=== PATIENT | male | born 1955 | race Caucasian/White ===

== ENCOUNTER 2017-12-20 07:40 | Emergency (ER) | payer OTHER ==
--- NOTE | 2017-12-20 09:47 | UC ---
Back Pain HPI - HPI Summary HPI Summary: PT WITH H/O CHRONIC LOW BACK PAIN PRESENTS WITH 4 DAYS OF WORSENING PAIN IN BILATERAL FLANK AREAS. IS CONCERNED ABOUT HIS KIDNEYS HE WAS HOSPITALIZED IN [place] ABOUT 3-4 MONTHS AGO IN KIDNEY FAILURE. DENIES ANY URINARY SX. NO FEVER OR NAUSEA. - History of Current Complaint Chief Complaint: UCBackPain Stated Complaint: LOWER BACK PAIN Time Seen by Provider: 12/20/17 09:19 Hx Obtained From: Patient Onset/Duration: Gradual Onset, Lasting Days, Still Present Timing: Constant Severity Initially: Moderate Severity Currently: Moderate Pain Intensity: 7 Pain Scale Used: 0-10 Numeric Back Pain: Is Discrete @ - LOW BACK BILATERALLY Aggravating Factor(s): Nothing Alleviating Factor(s): Nothing Associated Signs And Symptoms: Positive: Abdominal Pain. Negative: Fever, Flank Pain, Bladder Incontinence, Bowel Incontinence - Allergies/Home Medications Allergies/Adverse Reactions: Allergies Allergy/AdvReac Type Severity Reaction Status Date / Time No Known Allergies Allergy Verified 12/20/17 07:56 Home Medications: Home Medications Cyclobenzaprine TAB* [Flexeril 10 MG TAB*] 1 tab PO QPM PRN 12/20/17 [History Confirmed 12/20/17] Omeprazole CAP* [Prilosec CAP* 20 MG] 1 cap PO DAILY PRN 12/20/17 [History Confirmed 12/20/17] Oxycodone TAB(NF) [Oxycodone HCl 10 MG] 1 tab PO TID 12/20/17 [History Confirmed 12/20/17] tiZANidine TAB* [Zanaflex TAB*] 2 mg PO BID 12/20/17 [History Confirmed 12/20/17 ] PMH/Surg Hx/FS Hx/Imm Hx - Additional Past Medical History Additional PMH: CHRONIC LOW BACK PAIN Cardiovascular History: Hypertension - Surgical History Surgical History: Yes Surgery Procedure, Year, and Place: appy 35 years ago. laser surg for retinal bleeding 15 years ago - Family History Known Family History: Negative: Hypertension - Social History Alcohol Use: Occasionally Substance Use Type: None Smoking Status (MU): Never Smoked Tobacco - Immunization History Most Recent Tetanus Shot: unknown Review of Systems Constitutional: Negative Respiratory: Negative Cardiovascular: Negative Gastrointestinal: Negative Genitourinary: Negative Musculoskeletal: Myalgia All Other Systems Reviewed And Are Negative: Yes Physical Exam Triage Information Reviewed: Yes Appearance: Well-Appearing, Well-Nourished, Pain Distress - MOD Vital Signs: Initial Vital Signs Temp 99.3 F 12/20/17 07:49 Pulse 82 12/20/17 07:49 Resp 20 12/20/17 07:49 BP 140/83 12/20/17 07:49 Pulse Ox 98 12/20/17 07:49 Vital Signs Reviewed: Yes Eyes: Positive: Conjunctiva Clear ENT: Positive: Hearing grossly normal Neck: Positive: Supple Respiratory Exam: Normal Cardiovascular Exam: Normal Abdomen Description: Positive: Nontender, Soft. Negative: CVA Tenderness (R), CVA Tenderness (L) Musculoskeletal: Positive: No Edema, ROM Limited @ - BACK, Other: - NOT TENDER OVER SPINE OF PARASPINAL MUSCLES Neurological: Positive: Alert Psychological: Positive: Age Appropriate Behavior Skin: Negative: rashes Diagnostics - Laboratory Diagnostic Studies Completed/Ordered: URINE DIP NEGATIVE Back Pain Course/Dx - Differential Dx/Diagnosis Provider Diagnoses: BILATERAL FLANK PAIN Discharge - Discharge Plan Condition: Stable Disposition: HOME Patient Education Materials: Flank Pain (ED), Chronic Back Pain (ED) Referrals: Yoni Johnson MD [Primary Care Provider] - If Needed Additional Instructions: URINE TEST TODAY WAS UNREMARKABLE. YOUR PAIN MAY BE DUE TO AN EXACERBATION OF YOUR CHRONIC BACK PAIN. WILL CHECK BLOOD COUNT AND METABOLIC PANEL TODAY TO EVAL FOR ANY INDICATION OF INFECTION OR KIDNEY DYSFUNCTION. GO TO THE ER WITHOUT FAIL IF YOU DEVELOP WORSENING PAIN, FEVER, BLOODY URINE, INABILITY TO VOID OR ANY OTHER CONCERNING SYMPTOMS.
[2017-12-20 09:58] VITALS: BP 157/77
[2017-12-20 12:13] LABS: EGFR Non-African American 40.8 (>60)
[2017-12-20 12:39] LABS: ABS Basophils 0 10^3/ul (0-0.2); ABS Eosinophils 0.3 10^3/ul (0-0.6); ABS Lymphocytes 1.1 10^3/ul (1.0-4.8); ABS Monocytes 0.6 10^3/ul (0-0.8); ABS Neutrophils 3.5 10^3/ul (1.5-7.7); ABS Nucleated RBC 0 10^3/ul; Eosinophil % 6.1 % (0-6); Hematocrit 37 % (42-52); Hemoglobin 12.9 g/dl (14.0-18.0); Lymphocyte % 19.2 % (25-47); Mean Corpuscular HGB Conc 35 g/dl (31-36); Mean Corpuscular Hemoglobin 37 pg (27-31); Mean Corpuscular Volume 105 fL (80-94); Mean Platelet Volume 8 um3 (7.4-10.4); Nucleated Red Blood Cells % 0.1; Platelet Count 97 10^3/ul (150-450); Red Blood Count 3.51 10^6/ul (4.0-5.4); Red Cell Distribution Width 14 % (10.5-15); White Blood Count 5.6 10^3/ul (3.5-10.8)
== END 2017-12-20 10:06 | disposition home or self-care (01) ==
LOC: UCEAST 07:40
DX: M54.5 Low back pain (principal); R10.9 Unspecified abdominal pain; I10 Essential (primary) hypertension
CPT/HCPCS: 36415; 80053; 81003; 83036; 83735; 85025; 99212; G0463

== ENCOUNTER 2018-01-16 10:51 | Emergency (ER) | payer OTHER ==
[2018-01-16] MEDS ORDERED: Lisinopril TAB* 5 MG PO ONE (11:36)
[2018-01-16] MEDS ORDERED: oxyCODONE TAB* 5 MG TAB PO ONE (11:36)
[2018-01-16 12:20] VITALS: BP 162/91
--- NOTE | 2018-01-16 14:48 | ED ---
Anmol Duffy Jennifer, scribed for Alo Chang MD on 01/16/18 at 1134 . Hypertension - HPI Summary HPI Summary: The patient is a 62 year old male who was sent to the ED by his pain doctor for hypertension today. The patient reports he forgot to take his blood pressure medication this morning. He adds that he didnt sleep well last night and has chronic lower back pain. - History of Current Complaint Chief Complaint: EDHypertension Stated Complaint: HYPERTENSION/BACK PAIN Time Seen by Provider: 01/16/18 11:22 Hx Obtained From: Patient Onset/Duration: Started Hours Ago Timing: Lasting Hours Aggravating Factor(s): Nothing Alleviating Factor(s): Other - Blood pressure medication Associated Signs & Symptoms: Pain - Chronic lower back pain, Other: - Didn't sleep well last night - Allergies/Home Medications Allergies/Adverse Reactions: Allergies Allergy/AdvReac Type Severity Reaction Status Date / Time No Known Allergies Allergy Verified 12/20/17 07:56 PMH/Surg Hx/FS Hx/Imm Hx Cardiovascular History: Reports: Hx Hypertension Sensory History: Denies: Hx Legally Blind EENT History: Denies: Hx Deafness - Surgical History Surgery Procedure, Year, and Place: appy 35 years ago. laser surg for retinal bleeding 15 years ago Infectious Disease History: No Infectious Disease History: Denies: Traveled Outside the [place] in Last 30 Days - Family History Known Family History: Negative: Hypertension - Social History Alcohol Use: Daily Alcohol Amount: 2-3/day Substance Use Type: Reports: None, Prescribed Smoking Status (MU): Former Smoker Review of Systems Negative: Chills Positive: Other - Hypertension All Other Systems Reviewed And Are Negative: Yes Physical Exam - Summary Physical Exam Summary: General: well-appearing, no pain distress Skin: warm, color reflects adequate perfusion, dry Head: normal Eyes: EOMI, JOHNATHAN ENT: normal Neck: supple, nontender Respiratory: CTA, breath sounds present Cardiovascular: RRR Abdomen: soft, nontender Bowel: present Musculoskeletal: tender to palpation of lower back on the right. strength/ROM intact Neurological: normal, sensory/motor intact, A&O x3 Psychological: affect/mood appropriate Triage Information Reviewed: Yes Vital Signs On Initial Exam: Initial Vitals Temp Pulse Resp BP Pulse Ox 100.9 F 87 18 162/87 98 01/16/18 11:07 01/16/18 11:07 01/16/18 11:07 01/16/18 11:07 01/16/18 11:07 Vital Signs Reviewed: Yes Diagnostics - Vital Signs Vital Signs Temp Pulse Resp BP Pulse Ox 01/16/18 11:07 100.9 F 87 18 162/87 98 - Laboratory Lab Statement: Any lab studies that have been ordered have been reviewed, and results considered in the medical decision making process. Hypertension Course/Dx - Course Course Of Treatment: Medications reviewed. BP noted and advised to follow up with PCP. F/U PMD; RETURN IF WORSE. - Diagnoses Provider Diagnoses: HTN (hypertension) Discharge - Sign-Out/Discharge Documenting (check all that apply): Discharge - Discharge Plan Condition: Stable Disposition: HOME Patient Education Materials: Hypertension (ED), Chronic Back Pain (ED) Referrals: Yoni Johnson MD [Primary Care Provider] - Additional Instructions: FOLLOW UP WITH YOUR DOCTOR. RETURN TO THE EMERGENCY DEPARTMENT FOR ANY WORSENING OF YOUR CONDITION OR QUESTIONS OR CONCERNS. YOUR BLOOD PRESSURE WAS ELEVATED TODAY; FOLLOW UP WITH YOUR PRIMARY CARE DOCTOR WITHIN ONE WEEK. - Billing Disposition and Condition Condition: STABLE Disposition: HOME The documentation as recorded by the Anmol painting Jennifer accurately reflects the service I personally performed and the decisions made by me, Alo Chang MD.
[2018-01-17] MEDS ORDERED: Meloxicam(NF) 7.5 MG TAB PO ONE (11:35)
== END 2018-01-16 12:21 | disposition home or self-care (01) ==
LOC: ED 10:51
DX: I10 Essential (primary) hypertension (principal); M54.5 Low back pain; Z87.891 Personal history of nicotine dependence
CPT/HCPCS: 99282; A9270-GY

== ENCOUNTER 2018-08-09 01:23 | Observation (INO) | payer OTHER ==
--- NOTE | 2018-08-09 01:59 | ED ---
Substance Abuse/Use - HPI Summary HPI Summary: Pt is a 62 y/o male who presents to the ED c/o alcohol withdrawal. He has been an alcohol for 40 years, drinking 1 pint of vodka daily. He stopped drinking 4 days ago because he wants to quit drinking. Pt had several beers a few hours ago to try to calm down his symptoms. He c/o nausea, tremors, and sweating. - History Of Current Complaint Chief Complaint: EDSubstanceAbuse Stated Complaint: NAUSEA/SWEATING/WITHDRAW Time Seen by Provider: 08/09/18 01:51 Hx Obtained From: Patient Onset/Duration of Drug/ETOH Abuse: Years - 40 years Ingestion History: Type/Name Of Drug - Alcohol Character: Other - Withdrawal Aggravating Factor(s): Other - Stopped drinking alcohol 4 days ago Associated Signs And Symptoms: Diaphoretic, Tremulous, Nausea - Allergies/Home Medications Allergies/Adverse Reactions: Allergies Allergy/AdvReac Type Severity Reaction Status Date / Time No Known Allergies Allergy Verified 12/20/17 07:56 Home Medications: Home Medications Ondansetron ODT TAB* [Zofran 4 MG Odt TAB*] 4 mg PO Q6H PRN 08/09/18 [History Confirmed 08/09/18] PMH/Surg Hx/FS Hx/Imm Hx Cardiovascular History: Reports: Hx Hypertension Sensory History: Denies: Hx Legally Blind, Hx Deafness Opthamlomology History: Denies: Hx Legally Blind Psychiatric History: Reports: Hx Substance Abuse - Alcohol - Surgical History Surgery Procedure, Year, and Place: appy 35 years ago. laser surg for retinal bleeding 15 years ago Infectious Disease History: No Infectious Disease History: Denies: Traveled Outside the [place] in Last 30 Days - Family History Known Family History: Negative: Hypertension - Social History Alcohol Use: Daily Alcohol Amount: 2-3/day Hx Substance Use: Yes Substance Use Type: Reports: Prescribed Hx Tobacco Use: Yes Smoking Status (MU): Former Smoker Review of Systems Positive: Skin Diaphoresis Positive: Nausea Neurological: Other - Tremors All Other Systems Reviewed And Are Negative: Yes Physical Exam - Summary Physical Exam Summary: VITAL SIGNS: Reviewed. GENERAL: Patient is a well-developed and nourished MALE who is lying comfortable in the stretcher. Patient is not in any acute respiratory distress. HEAD AND FACE: No signs of trauma. No ecchymosis, hematomas or skull depressions. No sinus tenderness. EYES: PERRLA, EOMI x 2, No injected conjunctiva, no nystagmus. EARS: Hearing grossly intact. Ear canals and tympanic membranes are within normal limits. MOUTH: Oropharynx within normal limits. NECK: Supple, trachea is midline, no adenopathy, no JVD, no carotid bruit, no c- spine tenderness, neck with full ROM. CHEST: Symmetric, no tenderness at palpation LUNGS: Clear to auscultation bilaterally. No wheezing or crackles. CVS: Tachycardic but regular rhythm, S1 and S2 present, no murmurs or gallops appreciated. ABDOMEN: Soft, non-tender. No signs of distention. No rebound no guarding, and no masses palpated. Bowel sounds are normal. EXTREMITIES: FROM in all major joints, no edema, no cyanosis or clubbing. NEURO: Alert and oriented x 3. No acute neurological deficits. Speech is normal and follows commands. Tremors. SKIN: Dry and warm. Flushed. Triage Information Reviewed: Yes Vital Signs On Initial Exam: Initial Vitals Temp Pulse Resp BP Pulse Ox 97.5 F 140 20 176/118 95 08/09/18 01:25 08/09/18 01:25 08/09/18 01:25 08/09/18 01:25 08/09/18 01:25 Vital Signs Reviewed: Yes Diagnostics - Vital Signs Vital Signs Temp Pulse Resp BP Pulse Ox 08/09/18 01:25 97.5 F 140 20 176/118 95 - Laboratory Result Diagrams: 08/09/18 02:12 08/09/18 02:12 Lab Statement: Any lab studies that have been ordered have been reviewed, and results considered in the medical decision making process. - EKG 02:27 Cardiac Rate: Tachycardia - 116 bpm EKG Rhythm: Sinus Tachycardia EKG Interpretation: Non-specific T-ST changes Re-Evaluation - Re-Evaluation First Eval Re-Evaluation Time: 02:53 Change: Unchanged Comment: [facility] house servant Becky for admission. Course/Dx - Course Course Of Treatment: Pt is a 62 y/o male who presents to the ED c/o alcohol withdrawal. He has been an alcohol for 40 years, drinking 1 pint of vodka daily. He stopped drinking 4 days ago because he wants to quit drinking. Pt had several beers a few hours ago to try to calm down his symptoms. He c/o nausea, tremors, and sweating. A physical exam revealed flushed skin, tremors, and tachycardic. An EKG revealed tachycardia at a rate of 116 bpm and non-specific T -ST changes. Final dx is alcohol withdrawal. Pt is admitted to Dr. Caldwell. - Diagnoses Provider Diagnoses: Alcohol withdrawal - Physician Notifications Discussed Care Of Patient With: Meenakshi Caldwell Time Discussed With Above Provider: 03:15 Instructed by Provider To: Admit As Inpatient Discharge - Sign-Out/Discharge Documenting (check all that apply): Patient Departure - Admit - Discharge Plan Condition: Stable Disposition: ADMITTED TO [facility] Referrals: Daniel Yanes DO [Primary Care Provider] - - Attestation Statements Document Initiated by Scribe: Yes Documenting Scribe: Genesis Tyson Provider For Whom Scribe is Documenting (Include Credential): Bridget Stallworth MD Scribe Attestation: Genesis Duffy scribed for Bridget Stallworth MD on 08/09/18 at 0320.
[2018-08-09] MEDS ORDERED: NS 0.9% 1000 ML* 1,000 ML IV ONE (02:03)
[2018-08-09] MEDS ORDERED: Thiamine IV 100 MG, Folic Acid IV* 1 MG, Multiple Vitamin IV ADULT* 10 ML in D5NS 0.9% ... IV ONE (02:03)
[2018-08-09] MEDS ORDERED: Diazepam SYRINGE* 5 MG/ML 2 ML SYRINGE (10 MG total) IV ONE (02:05)
[2018-08-09 02:30] LABS: Hematocrit 44 % (42-52); Hemoglobin 15.3 g/dl (14.0-18.0); Mean Corpuscular HGB Conc 35 g/dl (31-36); Mean Corpuscular Hemoglobin 33 pg (27-31); Mean Corpuscular Volume 96 fL (80-94); Mean Platelet Volume 7.7 um3 (7.4-10.4); Platelet Count 91 10^3/ul (150-450); Red Blood Count 4.62 10^6/ul (4.00-5.40); Red Cell Distribution Width 16 % (10.5-15); White Blood Count 7.8 10^3/ul (3.5-10.8)
[2018-08-09 02:33] LABS: INR 1.17 (0.77-1.02)
[2018-08-09 02:43] LABS: EGFR Non-African American 37.5 (>60)
[2018-08-09 02:49] LABS: ABS Basophils 0 10^3/ul (0-0.2); ABS Eosinophils 0 10^3/ul (0-0.6); ABS Lymphocytes 0.7 10^3/ul (1.0-4.8); ABS Monocytes 0.6 10^3/ul (0-0.8); ABS Neutrophils 6.4 10^3/ul (1.5-7.7); ABS Nucleated RBC 0.1 10^3/ul; Eosinophil % 0.1 % (0-6); Lymphocyte % 8.5 % (25-47); Nucleated Red Blood Cells % 0.8
[2018-08-09] MEDS ORDERED: Diazepam INJ (NF) 5 MG/ML 10 ML VIAL (50 MG TOTAL) IV ONE (03:00)
--- NOTE | 2018-08-09 03:41 | ADMNOTE ---
Subjective Date of Service: 08/09/18 Interval History: this is a h/p for admission hpi this is a 62 yr old with chronic etoh dep who just stopped four days ago try to quit presented to er with etoh withdraw symptoms. pt has been drinking daily about 1 to 1.5 pint of vodka. pt does not give out clear history reg his etoh hx says he was in [facility] 05/14 but only stayed to finished detox process then AMA. he got valium 10 mg ivp from er but still asks valium constantly from this writer producer with intentional tremors ( tremors + when seen but tremors are gone when this writer producer was trying to get details of his other phx which raised the question. ) recently visited [facility] 6 weeks ago quit about one month then restarted to drink and increase from 1 to 1.5 liter of vodka. ( he was was d/cd with librium took his librium and d/cd from er from [facility] ) denied any pancreatitis or withdraw sz associated with his etoh consumption Family History: Findings - adopted Social History: Findings - quit cig 14 yrs ago etoh as per hpi no ivda applying for disability Past Medical History: Findings - phx chronic etoh chronic lbp used to be on oxycontin 30 mg daily for two yrs non compliance chronic anemia chronic thrombocytopenia htn but not on that no ivda pxhs s/p b/l inquinal hernia repair s/p appy Review of Systems - Measurements Intake and Output: 10/08 ros reviewed with him c/o hand shakiness from etoh but just got valium 10 mg iv from er - Review of Systems General Comments: 10/08 review with him says he has etoh withdraw symptoms with shaky exts tachy cardiac Objective Active Medications: Thiamine HCl 100 mg/ Folic Acid 1 mg/ Multivitamins 10 ml / Dextrose/Sodium Chloride 1,011.2 mls @ 500 mls/hr IV ED ONCE ONE Stop: 08/09/18 04:04 Vital Signs - 8 hr 08/09/18 08/09/18 08/09/18 01:25 02:01 02:02 Temperature 97.5 F Pulse Rate 140 118 116 Respiratory 20 21 Rate Blood Pressure 176/118 145/98 (mmHg) O2 Sat by Pulse 95 93 93 Oximetry 08/09/18 08/09/18 08/09/18 02:32 03:00 03:01 Temperature Pulse Rate 115 114 110 Respiratory 19 14 15 Rate Blood Pressure 164/110 140/94 (mmHg) O2 Sat by Pulse 90 90 93 Oximetry 08/09/18 03:06 Temperature Pulse Rate Respiratory 20 Rate Blood Pressure (mmHg) O2 Sat by Pulse Oximetry Eyes: No Scleral Icterus, PERRLA Ears/Nose/Mouth/Throat: NL Teeth, Lips, Gums, Clear Oropharnyx, Mucous Membranes Moist Neck: NL Appearance and Movements; NL JVP, Trachea Midline, No Thyroid Enlargement, Masses Respiratory: Symmetrical Chest Expansion and Respiratory Effort, Clear to Auscultation Cardiovascular: NL Sounds; No Murmurs; No JVD, RRR, No Edema Abdominal: NL Sounds; No Tenderness; No Distention Skin: No Rash or Ulcers Neurological: Alert and Oriented x 3, NL Sensation, NL Muscle Strength and Tone - + intentional tremors mixed with true tremors Result Diagrams: 08/09/18 02:12 08/09/18 02:12 EKG Data: sinus tach no acute st t change Assess/Plan/Problems-Billing Assessment: 62 yr old wm with hx of etoh dep presented to er with etoh withdraw - Patient Problems (1) Alcoholism Status: Acute Code(s): F10.20 - ALCOHOL DEPENDENCE, UNCOMPLICATED SNOMED Code(s): 9081335 Comment: - valium as per [facility] protocol -thiamine (2) Chronic lower back pain Status: Acute Code(s): M54.5 - LOW BACK PAIN; G89.29 - OTHER CHRONIC PAIN SNOMED Code(s): 996118283 Comment: stable no opoids able to raise le aginst gravity (3) CKD (chronic kidney disease) stage 3, GFR 30-59 ml/min Status: Acute Code(s): N18.3 - CHRONIC KIDNEY DISEASE, STAGE 3 (MODERATE) SNOMED Code(s): 061306316 Comment: BMP Saturday as outpt. (4) HTN (hypertension) Status: Acute Code(s): I10 - ESSENTIAL (PRIMARY) HYPERTENSION SNOMED Code(s) : 85830285 Comment: Continue lisinopril. - prn hydralazine iv 5 q 6 (5) Total bilirubin, elevated Status: Acute Code(s): R17 - UNSPECIFIED JAUNDICE SNOMED Code(s): 909320086036799 Comment: - moniter cmp - abd sono - npo except meds for now
[2018-08-09] MEDS ORDERED: Omeprazole CAP* 20 MG PO PRN (03:58)
[2018-08-09] MEDS ORDERED: Ondansetron ODT TAB* 4 MG PO PRN (03:58)
[2018-08-09] MEDS ORDERED: Diazepam TAB(*) 10 MG PO PRN (04:01)
[2018-08-09] MEDS ORDERED: Diazepam INJ (NF) 5 MG/ML 10 ML VIAL (50 MG TOTAL) IV PRN (04:06)
[2018-08-09 05:36] LABS: Urine Appearance Cloudy; Urine Blood Negative (Negative); Urine Color Amber; Urine Ketones Trace (Negative); Urine Protein Negative (Negative); Urine Specific Gravity 1.023 (1.010-1.030); Urine Urobilinogen Negative (Negative)
[2018-08-09] MEDS ORDERED: chlordiazePOXIDE CAP* 25 MG PO PRN (07:47)
[2018-08-09] MEDS: chlordiazePOXIDE CAP* 25 MG PO SCH ×3 (07:58→13:40)
--- NOTE | 2018-08-09 08:36 | PN ---
<JaviTerezaMeenakshi - Last Filed: 08/09/18 10:38> Objective Active Medications: Chlordiazepoxide (Librium Cap*) 50 mg PO TID [facility] Last Admin: 08/09/18 08:33 Dose: Not Given Chlordiazepoxide (Librium Cap*) 50 mg PO Q2H PRN PRN Reason: ANXIETY Diazepam (Valium Tab(*)) 10 mg PO Q6HR PRN PRN Reason: AGITATION Lisinopril (Prinivil Tab*) 10 mg PO DAILY [facility] Last Admin: 08/09/18 07:58 Dose: 10 mg Magnesium Oxide (Magox 400 Tab*) 400 mg PO DAILY [facility] Meloxicam (Mobic(Nf)) 15 mg PO DAILY [facility] Last Admin: 08/09/18 07:56 Dose: Not Given Omeprazole (Prilosec Cap*) 20 mg PO DAILY PRN PRN Reason: HEARTBURN Last Admin: 08/09/18 07:58 Dose: 20 mg Ondansetron HCl (Zofran Odt Tab*) 4 mg PO Q6H PRN PRN Reason: NAUSEA Last Admin: 08/09/18 05:56 Dose: 4 mg Thiamine HCl (Vitamin B-1 Tab*) 100 mg PO DAILY [facility] Tizanidine HCl (Zanaflex Tab*) 2 mg PO BID [facility] Last Admin: 08/09/18 07:58 Dose: 2 mg Vital Signs - 8 hr 08/09/18 08/09/18 08/09/18 03:00 03:01 03:06 Temperature Pulse Rate 114 110 Respiratory 14 15 20 Rate Blood Pressure 140/94 (mmHg) O2 Sat by Pulse 90 93 Oximetry 08/09/18 08/09/18 08/09/18 03:32 04:00 04:02 Temperature Pulse Rate 95 92 88 Respiratory 14 20 17 Rate Blood Pressure 151/92 172/88 (mmHg) O2 Sat by Pulse 96 98 96 Oximetry 08/09/18 08/09/18 08/09/18 04:32 04:38 05:00 Temperature 99.9 F Pulse Rate 96 103 93 Respiratory 16 24 15 Rate Blood Pressure 164/96 168/91 (mmHg) O2 Sat by Pulse 96 97 95 Oximetry 08/09/18 08/09/18 08/09/18 05:02 05:05 05:21 Temperature 98.5 F 99.9 F Pulse Rate 101 97 103 Respiratory 13 18 24 Rate Blood Pressure 147/93 164/89 168/91 (mmHg) O2 Sat by Pulse 96 97 97 Oximetry 08/09/18 07:58 Temperature Pulse Rate Respiratory 20 Rate Blood Pressure (mmHg) O2 Sat by Pulse Oximetry Result Diagrams: 08/09/18 02:12 08/09/18 02:12 Assess/Plan/Problems-Billing Assessment: - Patient Problems (1) Alcoholism Current Visit: Yes Status: Acute Code(s): F10.20 - ALCOHOL DEPENDENCE, UNCOMPLICATED SNOMED Code(s): 2124067 Comment: - valium as per [facility] protocol -thiamine (2) Chronic lower back pain Current Visit: Yes Status: Acute Code(s): M54.5 - LOW BACK PAIN; G89.29 - OTHER CHRONIC PAIN SNOMED Code(s): 812313295 Comment: stable no opoids able to raise le aginst gravity (3) CKD (chronic kidney disease) stage 3, GFR 30-59 ml/min Current Visit: Yes Status: Acute Code(s): N18.3 - CHRONIC KIDNEY DISEASE, STAGE 3 (MODERATE) SNOMED Code(s): 650054168 Comment: moniter with ivf (4) HTN (hypertension) Current Visit: Yes Status: Acute Code(s): I10 - ESSENTIAL (PRIMARY) HYPERTENSION SNOMED Code(s): 62179408 Comment: Continue lisinopril. - prn hydralazine iv 5 q 6 (5) Total bilirubin, elevated Current Visit: Yes Status: Acute Code(s): R17 - UNSPECIFIED JAUNDICE SNOMED Code(s): 188320859321338 Comment: - moniter cmp - abd sono - npo except meds for now <[place] - Last Filed: 08/09/18 14:34> Subjective Date of Service: 08/09/18 Interval History: Slept poorly. He states he "panicked" the night before and drank 2 beers, the only alcohol he had in the past 3 days. Appetite OK. Objective Active Medications: Chlordiazepoxide (Librium Cap*) 50 mg PO TID [facility] Last Admin: 08/09/18 07:58 Dose: 50 mg Chlordiazepoxide (Librium Cap*) 50 mg PO Q2H PRN PRN Reason: ANXIETY Diazepam (Valium Tab(*)) 10 mg PO Q6HR PRN PRN Reason: AGITATION Lisinopril (Prinivil Tab*) 10 mg PO DAILY [facility] Last Admin: 08/09/18 07:58 Dose: 10 mg Magnesium Oxide (Magox 400 Tab*) 400 mg PO DAILY [facility] Meloxicam (Mobic(Nf)) 15 mg PO DAILY [facility] Last Admin: 08/09/18 07:56 Dose: Not Given Omeprazole (Prilosec Cap*) 20 mg PO DAILY PRN PRN Reason: HEARTBURN Last Admin: 08/09/18 07:58 Dose: 20 mg Ondansetron HCl (Zofran Odt Tab*) 4 mg PO Q6H PRN PRN Reason: NAUSEA Last Admin: 08/09/18 05:56 Dose: 4 mg Thiamine HCl (Vitamin B-1 Tab*) 100 mg PO DAILY [facility] Tizanidine HCl (Zanaflex Tab*) 2 mg PO BID [facility] Last Admin: 08/09/18 07:58 Dose: 2 mg Vital Signs - 8 hr 08/09/18 08/09/18 08/09/18 01:25 02:01 02:02 Temperature 97.5 F Pulse Rate 140 118 116 Respiratory 20 21 Rate Blood Pressure 176/118 145/98 (mmHg) O2 Sat by Pulse 95 93 93 Oximetry 08/09/18 08/09/18 08/09/18 02:32 03:00 03:01 Temperature Pulse Rate 115 114 110 Respiratory 19 14 15 Rate Blood Pressure 164/110 140/94 (mmHg) O2 Sat by Pulse 90 90 93 Oximetry 08/09/18 08/09/18 08/09/18 03:06 03:32 04:00 Temperature Pulse Rate 95 92 Respiratory 20 14 20 Rate Blood Pressure 151/92 (mmHg) O2 Sat by Pulse 96 98 Oximetry 08/09/18 08/09/18 08/09/18 04:02 04:32 04:38 Temperature 99.9 F Pulse Rate 88 96 103 Respiratory 17 16 24 Rate Blood Pressure 172/88 164/96 168/91 (mmHg) O2 Sat by Pulse 96 96 97 Oximetry 08/09/18 08/09/18 08/09/18 05:00 05:02 05:05 Temperature 98.5 F Pulse Rate 93 101 97 Respiratory 15 13 18 Rate Blood Pressure 147/93 164/89 (mmHg) O2 Sat by Pulse 95 96 97 Oximetry 08/09/18 08/09/18 05:21 07:58 Temperature 99.9 F Pulse Rate 103 Respiratory 24 20 Rate Blood Pressure 168/91 (mmHg) O2 Sat by Pulse 97 Oximetry Oxygen Devices in Use Now: None Appearance: Alert, supine in bed. In good spirits. Tremulous but otherwise looks comfortable. Eyes: No Scleral Icterus - mild icterus Ears/Nose/Mouth/Throat: Clear Oropharnyx Neck: NL Appearance and Movements; NL JVP, No Thyroid Enlargement, Masses Respiratory: Symmetrical Chest Expansion and Respiratory Effort, Clear to Auscultation, Clear to Percussion Cardiovascular: NL Sounds; No Murmurs; No JVD, RRR, No Edema, - Extremities: No Edema, No Clubbing, Cyanosis, - Skin: No Rash or Ulcers, No Nodules or Sclerosis, - Neurological: Alert and Oriented x 3, NL Sensation - mod sustention tremor Result Diagrams: 08/09/18 02:12 08/09/18 02:12 Assess/Plan/Problems-Billing Assessment: - Patient Problems (1) Alcoholism Current Visit: Yes Status: Acute Code(s): F10.20 - ALCOHOL DEPENDENCE, UNCOMPLICATED SNOMED Code(s): 2845831 Comment: - valium as per [facility] protocol -thiamine (2) HTN (hypertension) Current Visit: Yes Status: Acute Code(s): I10 - ESSENTIAL (PRIMARY) HYPERTENSION SNOMED Code(s): 92060140 Comment: Continue lisinopril. - prn hydralazine iv 5 q 6 (3) CKD (chronic kidney disease) stage 3, GFR 30-59 ml/min Current Visit: Yes Status: Acute Code(s): N18.3 - CHRONIC KIDNEY DISEASE, STAGE 3 (MODERATE) SNOMED Code(s): 810358417 Comment: BMP Saturday as outpt.
[2018-08-09] MEDS ORDERED: tiZANidine TAB* 2 MG PO SCH (09:00)
[2018-08-09] MEDS ORDERED: Lisinopril TAB* 10 MG PO SCH (09:00)
[2018-08-09] MEDS ORDERED: Magnesium Oxide TAB* 400 MG PO SCH (09:00)
[2018-08-09] MEDS ORDERED: Meloxicam(NF) 15 MG TAB PO SCH (09:00)
[2018-08-09] MEDS ORDERED: Thiamine TAB* 100 MG TAB PO SCH ×2 (09:00)
--- NOTE | 2018-08-09 10:28 | RAD ---
Indication: Jaundice. Real-time sonography of the right upper quadrant was performed. The liver is mildly enlarged measuring 18.8 cm in length. It is mildly increased in echogenicity consistent with hepatic steatosis. The gallbladder demonstrates several small echogenic foci in the neck of the gallbladder consistent with cholelithiasis. The common duct is not dilated. The right kidney measures 12.2 x 5.6 x 6.3 cm. No hydronephrosis is noted. The pancreas is not visualized. IMPRESSION: Enlarged echogenic liver consistent with hepatic steatosis. Cholelithiasis although no biliary duct dilatation is noted.
[2018-08-09] MEDS ORDERED: hydrALAZINE IV* 20 MG/ML VIAL IV SLOW PU PRN (10:38)
[2018-08-09 12:37] VITALS: BP 112/60
--- NOTE | 2018-08-10 01:21 | DS ---
CC: Dr. Yanes DISCHARGE SUMMARY: DATE OF ADMISSION: DATE OF DISCHARGE: 08/09/18 HISTORY OF PRESENT ILLNESS/HOSPITAL COURSE: This 62-year-old man came because of alcohol withdrawal symptoms. He said he stopped drinking about 3 days before presenting to the emergency room. He said, the evening before, the symptoms were really severe and he actually drank 2 beers that day. The rest of the history is in the admission note. The patient was given various benzodiazepines initially, but mainly was maintained with oral chlordiazepoxide. He did well with that. He received 2 doses of 50 mg here. He was given a prescription for 25 mg capsules, 8 of them. He will take 1 this evening, then t.i.d. for 1 day, then b.i.d. for 2 days, and then stop. He was offered counseling services by the case reviewer, but declined that and said he would contact his employer, which is [employer], from which he is on disability for services. He had an ultrasound of the gallbladder, which was negative other than fatty liver, which the patient knew about before. I note his total bilirubin was 4.1 , AST was 60, ALT was 24. His INR was 1.17. He will have a CBC, a comprehensive metabolic profile, and INR on 08/11/[address] Yanes. FINAL DIAGNOSES: 1. Chronic alcoholism. 2. Hepatic steatosis. 3. Chronic low back pain. 4. Chronic kidney disease. 5. Hypertension. DISCHARGE MEDICATIONS: 1. Chlordiazepoxide 25 mg 8 capsules to be taken as above. 2. Thiamine 100 mg daily. 3. Meloxicam 15 mg daily. 4. Lisinopril 10 mg daily. 5. Tizanidine 2 mg b.i.d. 6. Omeprazole 1 capsule 20 mg daily. 7. Ondansetron ODT 4 mg every 6 hours p.r.n. DISCHARGE CONDITIONS: stable DISCHARGE DISPOSITION: home [id number]/[facility] #: [id number] [facility]
== END 2018-08-09 15:10 | disposition home or self-care (01) ==
LOC: ED 01:23 → MED 03:59 → INTOOBSV 03:59
PROVIDERS: ADMIT Internal Medicine; ATTEND Internal Medicine
DX: F10.20 Alcohol dependence, uncomplicated (principal); N28.89 Other specified disorders of kidney and ureter; M54.5 Low back pain; I12.9 Hypertensive chronic kidney disease with stage 1 through stage 4 chronic kidney disease, or unspecified chronic kidney disease; N18.9 Chronic kidney disease, unspecified; R17 Unspecified jaundice
CPT/HCPCS: 36415; 76705; 80053; 80320; 81003; 82550; 83605; 84443; 85025; 85060; 85610; 85730; 93005; 96361; 96365; 96375; 96376; 99284; A9270-GY; G0378; G0480; J3360; J3411

== ENCOUNTER → 2019-01-15 16:56 | Emergency (ER) | payer MEDICARE ==
[~2019-01-15 16:56] MED LIST: Bacitracin OINTMENT* 0.5% 0.5 oz TUBE TOPICAL ONE; Lidocaine 1% MPF wEPI 200,000* 30 ML SDV INJ ONE; Tetan/Diph/Pertus SYR(Tdap)* 0.5 ML SYR(BOOSTRIX) use SYR IM ONE
--- NOTE | 2019-01-15 18:46 | ED ---
Head Injury - HPI Summary HPI Summary: 63-year-old male presents with laceration to the back of his head. States he tripped and fell in his bedroom 6 days ago striking the back of his head on the floor. States he believes he had a brief loss of consciousness although unsure about the amount of time as this was an unwitnessed fall. He doesn't recall events immediately before and after the injury. Complains of a mild headache. Denies dizziness, vertigo, visual disturbances, memory loss, slurred speech, facial droop, neck pain, chest pain, palpitations, shortness of breath, abdominal pain, nausea, vomiting, diarrhea, or extremity numbness, tingling, or weakness. Tetanus status is unknown. - History Of Current Complaint Chief Complaint: EDLacSutureRecheck Stated Complaint: HEAD INJURY PER PT Time Seen by Provider: 01/15/19 17:49 Hx Obtained From: Patient Pain Intensity: 4 - Allergies/Home Medications Allergies/Adverse Reactions: Allergies Allergy/AdvReac Type Severity Reaction Status Date / Time No Known Allergies Allergy Verified 01/15/19 16:59 PMH/Surg Hx/FS Hx/Imm Hx Endocrine/Hematology History: Denies: Hx Anticoagulant Therapy, Hx Diabetes Cardiovascular History: Reports: Hx Hypertension GI History: Reports: Hx Gastroesophageal Reflux Disease History: Reports: Hx Acute Renal Failure - Resolved Denies: Hx Renal Disease, Other Problems/Disorders Musculoskeletal History: Reports: Hx Back Problems Sensory History: Reports: Hx Contacts or Glasses Denies: Hx Legally Blind, Hx Deafness, Hx Hearing Aid, Hx Hearing Problem Opthamlomology History: Reports: Hx Contacts or Glasses Denies: Hx Legally Blind Neurological History: Reports: Hx Migraine Psychiatric History: Reports: Hx Substance Abuse - Alcohol - Cancer History Cancer Type, Location and Year: DX WITH PROSTATE CA DECEMBER 2018 - Surgical History Surgery Procedure, Year, and Place: appy 35 years ago. laser surg for retinal bleeding 15 years ago - Immunization History Date of Tetanus Vaccine: Unknown Infectious Disease History: No Infectious Disease History: Denies: Traveled Outside the [place] in Last 30 Days - Family History Known Family History: Positive: Non-Contributory - Social History Occupation: Disabled Lives: Dormitory/Roommates Alcohol Use: Weekly Alcohol Amount: 1 pint vodka daily Hx Substance Use: Yes Substance Use Type: Reports: None Hx Tobacco Use: Yes Smoking Status (MU): Former Smoker Type: Cigarettes Review of Systems Negative: Fever, Chills Negative: Photophobia, Blurred Vision, Diplopia Negative: Palpitations, Chest Pain Negative: Shortness Of Breath, Cough Negative: Abdominal Pain, Vomiting, Diarrhea, Nausea Genitourinary: Negative Musculoskeletal: Negative Positive: Other - laceration posterior scalp Positive: Headache. Negative: Weakness, Paresthesia, Numbness, Slurred Speech All Other Systems Reviewed And Are Negative: Yes Physical Exam - Summary Physical Exam Summary: GENERAL APPEARANCE: Well developed, well nourished, alert and cooperative, and appears to be in no acute distress. HEAD: Large linear posterior scalp laceration, wound margins unapproximated with an 1 cm gap at the widest point, old dry clot within the wound. No erythema , induration, or drainage is noted. EYES: Conjunctiva clear. No drainage. PERRL, EOM intact. Vision is grossly intact. EARS: External auditory canals and tympanic membranes clear, hearing grossly intact. NOSE: No nasal discharge. NECK: Neck supple, non-tender. CARDIAC: Normal S1 and S2. No S3, S4 or murmurs. Rhythm is regular. There is no peripheral edema, cyanosis or pallor. Extremities are warm and well perfused. Capillary refill is less than 2 seconds. Peripheral pulses intact. LUNGS: Clear to auscultation without rales, rhonchi, wheezing or diminished breath sounds. ABDOMEN: Positive bowel sounds. Soft, nondistended, nontender. No guarding or rebound. No masses or hepatosplenomegally. MUSKULOSKELETAL: ROM intact to all extremities. No joint erythema or tenderness. Normal muscular development. BACK: Examination of the spine reveals normal gait and posture, no spinal deformity or tenderness, decreased range of motion or muscular spasm. NEUROLOGICAL: CN II-XII intact. Strength and sensation symmetric and intact throughout. Reflexes 2+ throughout. SKIN: Skin normal color, texture and turgor. Triage Information Reviewed: Yes Vital Signs On Initial Exam: Initial Vitals Temp Pulse Resp BP Pulse Ox 98.7 F 93 16 109/82 100 01/15/19 17:00 01/15/19 17:00 01/15/19 17:00 01/15/19 17:00 01/15/19 17:00 Vital Signs Reviewed: Yes Procedures - Procedure Summary Procedure Summary: Procedure note: Laceration repair right posterior parietal scalp Informed consent was obtained before procedure started and the appropriate timeout was taken with Barbara Nur RN. The area was prepped and draped in the usual sterile fashion. Local anesthesia was achieved using 8 ml of lidocaine 2% with epinephrine. The blood clot was removed from the wound and the wound was copiously irrigated with sterile saline. The wound was thoroughly explored. The laceration extended through to the galea which was intact. No foreign bodies were observed. At total of 4 buried interrupted sutures were placed using 4-0 Polysorb to bring the dermal layers into alignment then a total of 11 janis were placed. Total length of the laceration post-repair was 18 cm. Estimated blood loss was minimal. Bacitracin ointment was applied to the wound. Anticipatory guidance, as well as standard post-procedure care was discussed with patient. Return precautions are given. The patient tolerated the procedure well without complications. Patient is to follow up in 3-5 days for a wound check and reevaluation of the head injury then in 7 days for suture removal. Diagnostics - Vital Signs Vital Signs Temp Pulse Resp BP Pulse Ox 01/15/19 17:00 98.7 F 93 16 109/82 100 - Laboratory Lab Statement: Any lab studies that have been ordered have been reviewed, and results considered in the medical decision making process. - CT No standard instances CT Interpretation Completed By: Radiologist Summary of CT Findings: CT Head Without Contrast. EXAM DATE/TIME: 01/15/2019 7: 06 PM. CLINICAL HISTORY: 63 years old, male; Injury or trauma; Fall; Patient HX : Fall 5 days ago, laceration to back of head; Additional info: Head injury S/P fall with loc. TECHNIQUE: Imaging protocol: Axial computed tomography images of the head/brain without contrast. Radiation optimization: All CT scans at this facility use at least one of these dose optimization techniques: automated exposure control; mA and/or kV adjustment per patient size (includes targeted exams where dose is matched to clinical indication); or iterative reconstruction. COMPARISON: No relevant prior studies available. FINDINGS: Brain: No acute ischemic changes, extra axial fluid collections, intraparenchymal hemorrhage, or midline shift. Ventricles: Normal. No ventriculomegaly. Bones/joints: Normal. No acute fracture. Sinuses: Visualized sinuses are normal. No acute sinusitis. Mastoid air cells: Visualized mastoid air cells are normal. No mastoid effusion. Soft tissues: Subcutaneous edema, hematoma, and laceration overlying the posterior right parietal bone. Vasculature: The vasculature demonstrates diffuse mild atherosclerotic calcification. IMPRESSION: Posterior right parietal superficial contusion/ laceration with no acute intracranial abnormality. Head Injury Course/Dx Course Of Treatment: 63-year-old male presents with laceration to the back of his head. States he tripped and fell in his bedroom 6 days ago striking the back of his head on the floor. States he believes he had a brief loss of consciousness although unsure about the amount of time as this was an unwitnessed fall. He doesn't recall events immediately before and after the injury. Complains of a mild headache. Denies dizziness, vertigo, visual disturbances, memory loss, slurred speech, facial droop, neck pain, chest pain, palpitations, shortness of breath, abdominal pain, nausea, vomiting, diarrhea, or extremity numbness, tingling, or weakness. Tetanus status is unknown. - Diagnoses Differential Diagnosis/HQI/PQRI: Concussion With LOC, Laceration, Skull Fracture Provider Diagnoses: Concussion with loss of consciousness, Laceration of scalp with delay in treatment Discharge - Sign-Out/Discharge Documenting (check all that apply): Patient Departure Patient Received Moderate/Deep Sedation with Procedure: No - Discharge Plan Condition: Stable Disposition: HOME Patient Education Materials: Laceration (ED), Concussion (ED), Staple Care (ED) Referrals: Daniel Yanes DO [Primary Care Provider] - 3 Days Additional Instructions: Your CT of the head was normal. I suspect that you have a concussion from your injury. The laceartion of your scalp was clean and repaired using 4 absorbable sutures and 11 janis. The absorbable sutures will slowly be absorbed by your body over the next several weeks and will not need to be removed. The janis should be removed in 7 days. You can return here or follow up with you primary care provider to have this done. You may shower and wash your hair as normal starting tomorrow. No heavy scrubbing over the wound. Apply bacitracin ointment to wound at least twice a day. Watch for signs of infection including fever greater than 100.5 F, redness that spreads, increased swelling, pus draining from the wound. Seek immediate medical attention should any of these occur. Follow up with your primary care provider in 3-5 days for recheck of your head injury. Return to the emergency room if you have a severe headache, visual disturbances , confusion, loss of consciousness, speech difficulties, numbness, tingling, or weakness of your arms or legs, or any worsening of symptoms. - Billing Disposition and Condition Condition: STABLE Disposition: Home Images - Images Head: 1 - Linear scalp laceration
[2019-01-15 21:18] VITALS: BP 99/68
== END | disposition home or self-care (01) ==
LOC: ED 16:56
DX: S01.01XA Laceration without foreign body of scalp, initial encounter (principal); W01.0XXA Fall on same level from slipping, tripping and stumbling without subsequent striking against object, initial encounter; Y92.9 Unspecified place or not applicable; K21.9 Gastro-esophageal reflux disease without esophagitis; N19 Unspecified kidney failure; Z87.891 Personal history of nicotine dependence; R51 Headache
CPT/HCPCS: 70450; 90471; 90715; 99282; A9270-GY; J2001

== ENCOUNTER 2019-01-22 11:58 | Emergency (ER) | payer MEDICARE ==
[2019-01-22 12:11] VITALS: BP 109/62
--- NOTE | 2019-01-22 12:18 | UC ---
HPI Wound/Suture Re-check - HPI Summary HPI Summary: 63 y/o male presents to the urgent care requesting staple removal s/p laceration to the posterior back on 01/15/2019. Pt reports he fell at home and janis were placed at the ER. Heat CT ws normal. Pt has been applying triple antibiotic and wound is healing well. Pt denies GATES, visual disturbances, dizziness, signs of infection, SOB, chest pain, abdominal pain, N/v/d. - History Of Current Complaint Chief Complaint: UCLaceration Stated Complaint: JANIS REMOVED Time Seen by Provider: 01/22/19 12:17 Hx Obtained From: Patient Onset/Duration: Sudden Onset, Lasting Weeks - 1 week, Resolved Severity: Mild Pain Intensity: 0 Pain Scale Used: 0-10 Numeric Surgery Date: 01/15/19 Head: 1 - 11cm linear laceration w/ [address] - Allergies/Home Medications Allergies/Adverse Reactions: Allergies Allergy/AdvReac Type Severity Reaction Status Date / Time No Known Allergies Allergy Verified 01/22/19 12:11 PMH/Surg Hx/FS Hx/Imm Hx Previously Healthy: Yes Cardiovascular History: Hypertension Other GI/ History: Prostate cancer Other History Of: Negative For: Anticoagulant Therapy - Surgical History Surgical History: Yes Surgery Procedure, Year, and Place: appy 35 years ago. laser surg for retinal bleeding 15 years ago - Family History Known Family History: Positive: Cardiac Disease, Hypertension, Non-Contributory - Social History Occupation: Employed Full-time Lives: With Family Alcohol Use: Weekly Alcohol Amount: 1 pint vodka daily Substance Use Type: None Smoking Status (MU): Former Smoker Type: Cigarettes - Immunization History Most Recent Influenza Vaccination: 2017 Most Recent Tetanus Shot: unknown Most Recent Pneumonia Vaccination: Never Review of Systems All Other Systems Reviewed And Are Negative: Yes Constitutional: Positive: Negative Skin: Positive: Other - wound in the posterior head w/ [address] Eyes: Positive: Negative ENT: Positive: Negative Respiratory: Positive: Negative Cardiovascular: Positive: Negative Gastrointestinal: Positive: Negative Genitourinary: Positive: Negative Motor: Positive: Negative Neurovascular: Positive: Negative Musculoskeletal: Positive: Negative Neurological: Positive: Negative Psychological: Positive: Negative Is Patient Immunocompromised?: No Physical Exam Triage Information Reviewed: Yes Appearance: Well-Appearing, No Pain Distress, Well-Nourished Vital Signs: Initial Vital Signs Temp 98.8 F 01/22/19 12:07 Pulse 79 01/22/19 12:07 Resp 20 01/22/19 12:07 BP 109/62 01/22/19 12:07 Pulse Ox 99 01/22/19 12:07 Vital Signs Reviewed: Yes ENT Exam: Normal Dental Exam: Normal Neck exam: Normal Respiratory Exam: Normal Cardiovascular Exam: Normal Cardiovascular: Positive: RRR, No Murmur, Pulses Normal Abdominal Exam: Normal Bowel Sounds: Positive: Present Musculoskeletal Exam: Normal Neurological Exam: Normal Psychological Exam: Normal Skin: Positive: Other - Wound healing well with crusting and moderate granulation over, non tender to palpation,[address] on the posterior RT side of the head, FROM of head. Course/Dx - Course Course Of Treatment: 63 y/o male presents to the urgent care requesting staple removal s/p laceration to the posterior back on 01/15/2019. Pt reports he fell at home and jnais were placed at the ER. Heat CT ws normal. Pt has been applying triple antibiotic and wound is healing well. Pt denies GATES, visual disturbances, dizziness, signs of infection, SOB, chest pain, abdominal pain, N/v/d. Hx obtained. Wound healing well with crusting and moderate granulation over, non tender to palpation,[address] 11 janis removed w/o any difficulty. Pt tolerated well procedure. wound cleaned with sterile water and bacitracin applied over. Pt advised if redness, pain or fever develops to return to the urgent care or f/u with PCP for further treatment.Pt understood and agreed with plan of care - Differential Dx - Laceration/Wound Differential Diagnoses: Cellulitis, Healing Wound, Suture Removal - Diagnosis Provider Diagnosis: Encounter for staple removal Discharge - Sign-Out/Discharge Documenting (check all that apply): Patient Departure - D/c home All imaging exams completed and their final reports reviewed: No Studies - Discharge Plan Condition: Stable Disposition: HOME Patient Education Materials: Acute Wound Care (ED) Referrals: Daniel Yanes DO [Primary Care Provider] - If Needed Additional Instructions: 1-Please apply topical antibiotic over the wound. Keep wound clean and dry 2- If you develop signs of infection, fever or redness around wound please return to the Urgent care or f/u w/ your PCP for further management. . - Billing Disposition and Condition Condition: STABLE Disposition: Home
== END 2019-01-22 12:43 | disposition home or self-care (01) ==
LOC: UCEAST 11:58
DX: Z48.02 Encounter for removal of sutures (principal); I10 Essential (primary) hypertension; C61 Malignant neoplasm of prostate; Z87.891 Personal history of nicotine dependence

== ENCOUNTER 2019-03-20 02:33 | Inpatient (IN) | payer MEDICARE ==
[2019-03-20] MEDS ORDERED: NS 0.9% 1000 ML** 2,000 ML IV ONE (02:40)
--- NOTE | 2019-03-20 02:51 | ED ---
Altered Mental Status - HPI Summary HPI Summary: Pt is a 63 y/o M presenting to the ED brought in by EMS for AMS. LEVEL 5 CAVEAT : Pts full hx and physical are unable to be obtained d/t decreased level of consciousness. Per EMS, the pt called 911 for dizziness and not feeling right and was trying to drive himself to the hospital. He went unresponsive while on the phone, so they sent the police and EMS to get him. The police state he was lethargic but not completely unresponsive when they arrived. He was unresponsive upon EMS arrival with a BP in the 70s, woke up during transport and informed them that he has prostate cancer, then went back to not responding. EMS states their fingerstick was 172. The pt currently reports dizziness and hx of prostate CA and umbilical hernia. - History Of Current Complaint Chief Complaint: EDAltMentalStatus Stated Complaint: SEMI RESPONSIVE PER EMS Hx Obtained From: EMS Hx From Patient Unobtainable Due To: Altered Mental Status Onset/Duration: Unknown Timing: Constant, Lasting Hours Severity Initially: Severe Severity Currently: Severe Character: Confusion, Responsiveness Aggravating Factor(s): Unknown Alleviating Factor(s): Unknown Associated Signs And Symptoms: Positive: Dizziness - Allergies/Home Medications Allergies/Adverse Reactions: Allergies Allergy/AdvReac Type Severity Reaction Status Date / Time No Known Allergies Allergy Verified 03/24/19 08:17 Home Medications: Home Medications Multivitamin [Once Daily] 1 tab PO DAILY 03/20/19 [History Confirmed 03/20/19] Tizanidine HCl 2 mg PO BID 03/20/19 [History Confirmed 03/20/19] PMH/Surg Hx/FS Hx/Imm Hx Previously Healthy: No - LEVEL 5 CAVEAT: Pts full hx and physical are unable to be obtained. GI History: Reports: Other GI Disorders - umbilical hernia - Cancer History Cancer Type, Location and Year: prostate CA Infectious Disease History: Unable to Obtain/Confirm Infectious Disease History: Denies: Traveled Outside the [place] in Last 30 Days - unknown - Family History Known Family History: Positive: Unknown Family History: LEVEL 5 CAVEAT: Pts full hx and physical are unable to be obtained d/t decreased level of consciousness. Review of Systems - ROS Summary Review of Systems Summary: LEVEL 5 CAVEAT: Pts full hx and physical are unable to be obtained d/t decreased level of consciousness. Neurological: Other - dizziness All Other Systems Reviewed And Are Negative: No Physical Exam - Summary Physical Exam Summary: Appearance: Awake, appears somnolent. No external signs of trauma about the head or torso. Skin: Warm, dry, no obvious rash Eyes: sclera anicteric, no conjunctival pallor, pupils 3mm and reactive. ENT: mucous membranes moist, pharynx appears normal Neck: Supple, nontender Respiratory: Clear to auscultation, no signs of respiratory distress Cardiovascular: Normal S1, S2. No murmurs. Normal distal pulses in tibial and radial bilaterally. Abdomen: Obese but nontender, normal active bowel sounds present Musculoskeletal: Normal, Strength/ROM Intact Neurological: Arouses easily to voice, answers questions appropriately. Speech is somewhat dysarthric but intelligible. Psychiatric: affect is normal, does not appear anxious or depressed Triage Information Reviewed: Yes Vital Signs On Initial Exam: Initial Vitals Temp Pulse Resp BP Pulse Ox 96.4 F 76 12 151/120 94 03/20/19 02:36 03/20/19 02:36 03/20/19 02:36 03/20/19 02:36 03/20/19 02:36 Vital Signs Reviewed: Yes Completion Of Physical Exam Limited Due To: Level 5 - [place] Coma Scale Best Eye Response: 4 - Spontaneous Best Motor Response: 6 - Obeys Commands Best Verbal Response: 5 - Oriented Coma Scale Total: 15 Diagnostics - Vital Signs Vital Signs Temp Pulse Resp BP Pulse Ox 03/20/19 02:42 59 14 68/47 93 03/20/19 02:41 24 03/20/19 02:36 96.4 F 76 12 151/120 94 - Laboratory Result Diagrams: 03/22/19 06:25 03/23/19 06:31 Lab Statement: Any lab studies that have been ordered have been reviewed, and results considered in the medical decision making process. - CT Brain CT CT Interpretation Completed By: Radiologist Summary of CT Findings: No acute intracranial hemorrhage or mass effect. ED physician has reviewed this report. Chest/Abd/Pelv CT CT Interpretation Completed By: Radiologist Summary of CT Findings: 1. Cirrhotic appearing liver. Heterogeneous density to liver. Consider imaging of the liver with contrast to assess for the possibility of a the presence of a hepatocellular cancer. 2. Large volume of abdominal ascites. This potentially could be the cause of the patient's hypotension. 3. Splenomegaly. ED physician has reviewed this report. - EKG 023 Cardiac Rate: Bradycardia - 57bpm EKG Rhythm: Sinus Rhythm ST Segment: Normal Ectopy: None Summary of EKG Findings: EKG at 0239 shows sinus bradycardia with L axis deviation, borderline T abnormalities, prolonged QT interval, and no STEMI. Altered Mental Statu Course/Dx - Course Course Of Treatment: Pt is a 63 y/o M presenting to the ED brought in by EMS for AMS. LEVEL 5 CAVEAT: Pts full hx and physical are unable to be obtained d/ t decreased level of consciousness. Per EMS, the pt called 911 for dizziness and not feeling right and was trying to drive himself to the hospital. He went unresponsive while on the phone, so they sent the police and EMS to get him. The pt currently reports dizziness and hx of prostate CA and umbilical hernia. Upon physical exam, the pt is awake but appears somnolent. He arouses easily to voice, answers questions appropriately, and his speech is somewhat dysarthric but intelligible. His pupils are 3mm and reactive, there are no external signs of trauma about the head or torso, and his abd is obese but nontender. Brain CT shows no acute intracranial hemorrhage or mass effect. I spoke with Dr. Marquez who will be accepting the [place] [facility] [place] dx of [place]. Chest/Abd/ Pelv CT shows: 1. Cirrhotic appearing liver. Heterogeneous density to liver. Consider imaging of the liver with contrast to assess for the possibility of a the presence of a hepatocellular cancer. 2. Large volume of abdominal ascites. This potentially could be the cause of the patient's hypotension. 3. Splenomegaly. EKG at 0239 shows sinus bradycardia with L axis deviation, borderline T abnormalities, prolonged QT interval, and no STEMI. - Diagnoses Provider Diagnoses: Hypotension, Ascites, Cirrhosis of liver, Altered mental status - Critical Care Time Critical Care Time: 30-74 min Discharge - Sign-Out/Discharge Documenting (check all that apply): Patient Departure - Discharge Plan Condition: Stable Disposition: ADMITTED TO [facility] - Billing Disposition and Condition Condition: STABLE Disposition: Admitted to [facility] - Attestation Statements Document Initiated by Scribe: Yes Documenting Scribe: Astrid Pickering Provider For Whom Scribe is Documenting (Include Credential): Ford Dorado MD. Scribe Attestation: Astrid Duffy, scribed for Ford Dorado MD. on 03/24/19 at 1835. Scribe Documentation Reviewed: Yes Provider Attestation: The documentation as recorded by the scribe, Astrid Pickering accurately reflects the service I personally performed and the decisions made by me, Ford Dorado MD. Status of Scribe Document: Viewed Consult Consult: [id number] - I spoke with Dr. Marquez who will be accepting the pt [place] [facility] with [place] dx of hypot[place].
[2019-03-20 02:53] LABS: ABS Basophils 0.1 10^3/ul (0-0.2); ABS Eosinophils 0.2 10^3/ul (0-0.6); ABS Lymphocytes 1.4 10^3/ul (1.0-4.8); ABS Monocytes 0.6 10^3/ul (0-0.8); ABS Neutrophils 3.7 10^3/ul (1.5-7.7); Eosinophil % 4.1 %; Hematocrit 31 % (42-52); Hemoglobin 10.5 g/dL (14.0-18.0); Lymphocyte % 23.5 %; Mean Corpuscular HGB Conc 34 g/dL (31-36); Mean Corpuscular Hemoglobin 32 pg (27-31); Mean Corpuscular Volume 96 fL (80-94); Mean Platelet Volume 7.1 fL (7.4-10.4); Platelet Count 221 10^3/uL (150-450); Red Blood Count 3.24 10^6 /uL (4.18-5.48); Red Cell Distribution Width 16 % (10.5-15)
[2019-03-20 03:14] LABS: ALT 24 U/L (7-52); AST 72 U/L (13-39); Albumin 2.8 g/dL (3.2-5.2); Albumin/Globulin Ratio 1.3 (1-3); Alkaline Phosphatase 131 U/L (34-104); Anion Gap 9 mmol/L (2-11); Blood Urea Nitrogen 6 mg/dL (6-24); CO2 Carbon Dioxide 24 mmol/L (22-32); Calcium 7.6 mg/dL (8.6-10.3); Chloride 102 mmol/L (101-111); EGFR African American 109.4 (>60); EGFR Non-African American 90.4 (>60); Globulin 2.2 g/dL (2-4); Glucose 147 mg/dL (70-100); Potassium 3.7 mmol/L (3.5-5.0); Sodium 135 mmol/L (135-145)
[2019-03-20] MEDS ORDERED: Norepinephrine 16MCG/ML IVPRE* 4,000 MCG/250 ML BAG IV ONE (03:14)
[2019-03-20 03:20] LABS: Alcohol 184 mg/dL (<10)
[2019-03-20] MEDS ORDERED: Thiamine IV* 100 MG/ML 2 ML VIAL IM ONE (03:52)
[2019-03-20] MEDS ORDERED: Lorazepam PYXIS KEY PRN (03:55)
[2019-03-20] MEDS ORDERED: Norepinephrine 16MCG/ML IVPRE* 4,000 MCG/250 ML BAG IV SCH (04:00)
[2019-03-20] MEDS ORDERED: cefoTAXime(*) 2,000 MG in NS 0.9% 50 ML* 50 ML IVPB SCH (04:00)
[2019-03-20] MEDS: Lactated Ringers 1000 ML Bag* 1,000 ML IV SCH ×3 (04:03→12:45)
[2019-03-20] MEDS ORDERED: cefTRIAXone(*) 2 GM in NS 0.9% 100 ML* 100 ML IVPB ONE (04:09)
[2019-03-20 04:12] LABS: C Reactive Protein 3.06 mg/L (<8.01)
[2019-03-20 04:16] LABS: Urine Benzodiazepine Screen None Detected (None Detect); Urine Opiates Screen None Detected (None Detect)
[2019-03-20 04:59] LABS: Acetaminophen < 15 mcg/mL; Salicylate < 2.50 mg/dL (<30)
[2019-03-20] MEDS ORDERED: Lactated Ringers 1000 ML Bag* 1,000 ML IV SCH (05:00)
[2019-03-20 05:02] LABS: Magnesium 2.1 mg/dL (1.9-2.7)
[2019-03-20 05:09] LABS: Prealbumin 9 mg/dL (18-38)
[2019-03-20 05:18] LABS: TSH (Thyroid Stimulating Horm) 0.94 mcIU/mL (0.34-5.60)
[2019-03-20] MEDS ORDERED: Albumin Human 25%* 25 GM/100 ML BTL IV ONE (06:30)
[2019-03-20] MEDS: Heparin VIAL(*) 5000 UNITS/ML VIAL (FIVE THOUSAND) SUBCUT SCH ×3 (06:32→21:31)
--- NOTE | 2019-03-20 08:02 | ED ---
Progress - Progress Note Progress Note: RECEIVING SIGN-OUT FROM DR. GARCIA AT SHIFT CHANGE (07:00) ON 03/20/2019 PENDING ADMISSION. HPI: [id number]: ED provider at bedside with Dr. Bret Zurita, chief of hospital medicine. Pt is a 63 y/o M presenting to the ED for AMS. Consults: 0730: Dr. Day, hospitalist Recommends abd paracentesis. 0734: Dr. Chambers, radiologist Recommends calling surgery for the paracentesis 0758: Dr Bret Zurita, chief of hospital medicine and ED MD at bedside. Dr. Zurita will perform the paracentesis and take to ICU. Course/Dx - Course Course Of Treatment: RECEIVING SIGN-OUT FROM DR. GARCIA AT SHIFT CHANGE (07:00) ON 03/20/2019 PENDING ADMISSION. Pt is a 63 y/o M presenting to the ED for AMS. Consulted with Dr. Day hospitalist who recommends paracentesis while in ED. Consulted with Dr.Paul Zurita, chief of hospital medicine, who will perform the paracentesis and take patient to the ICU. - Diagnoses Provider Diagnoses: Hypotension, Ascites, Cirrhosis of liver, Altered mental status - Critical Care Time Critical Care Time: 30-74 min - 30 mins Discharge - Sign-Out/Discharge Documenting (check all that apply): Patient Departure - ICU All imaging exams completed and their final reports reviewed: No Studies Patient Received Moderate/Deep Sedation with Procedure: No - Discharge Plan Condition: Stable Disposition: ADMITTED TO [facility] - Billing Disposition and Condition Condition: STABLE Disposition: Admitted to [facility] - Attestation Statements Document Initiated by Scribe: Yes Documenting Scribe: Paco Mckeon Provider For Whom Tsering is Documenting (Include Credential): Dr. Sirisha Avelar MD Scribe Attestation: Paco Duffy scribed for Dr. Sirisha Avelar MD on 03/23/19 at 0242. Scribe Documentation Reviewed: Yes Provider Attestation: The documentation as recorded by the Paco painting accurately reflects the service I personally performed and the decisions made by me, Dr. Sirisha Avelar MD Status of Scribe Document: Viewed
--- NOTE | 2019-03-20 08:03 | HP ---
CC: Dr. Yanes from [facility] HISTORY AND PHYSICAL: DATE OF ADMISSION: 03/20/19 TIME OF EVALUATION: 0200 PRIMARY CARE PHYSICIAN: Dr. Yanes from [facility]. CHIEF COMPLAINT: Weakness and lightheadedness. HISTORY OF PRESENT ILLNESS: This is a 63-year-old male with a past medical history of prostate cancer and alcohol use; who presents to the emergency room after feeling weak and lightheaded. The patient is still rather lethargic and history is limited; however, he states he has not had anything to eat and very little to drink over the past few days due to significant bloating of his abdomen. He states he has mostly been fine, he just has not had any appetite. Despite not eating, he has been gaining weight. Today, he states he drank about 3 drinks over the course of the day and was just feeling very weak and decided to come to the emergency room. He knew and he states it is bad when he comes to the emergency room and that normally he does not seek medical care. He became very lightheaded, dizzy, and pulled over in the parking lot and called 911. When EMS arrived, he was noted to have a systolic blood pressure of 70s. On arrival, the patient was hypotensive, diaphoretic, and lethargic but does awake to voice. He was given 2 L and started on Levophed. He denies any chest pain. No shortness of breath. No abdominal pain, just bloated and uncomfortable. No fevers or chills. He states he has been having normal bowel movements. No blood or black stools. No nausea or vomiting. He states he has been diagnosed with prostate cancer, but they postponed his surgery due to abnormal blood work and he is scheduled to see Dr. Murray next week. He admits to drinking 5 to 6 drinks per day. No other illicit drug use. As mentioned in the emergency room, the patient had labs drawn and imaging. He was given 3 L of normal saline, started on Levophed. Otherwise, review of systems is negative. PAST MEDICAL HISTORY: 1. Prostate cancer, scheduled for TURP and scheduled to see Dr. Murray next week. States he has a Nathaniel score of 9. 2. Chronic back pain. 3. History of cervical stenosis. MEDICATIONS: 1. Ibuprofen. 2. Aspirin as needed. ALLERGIES: No known drug allergies. FAMILY HISTORY: Mother is alive and healthy, father is unknown. SOCIAL HISTORY: The patient lives with a housemate. He states he drinks about 5 to 6 drinks of Vodka or malt per day. No illicit drugs. No smoking. He is on disability for his back pain. His mother is his healthcare proxy. Code status is full code. REVIEW OF SYSTEMS: Fourteen point review of systems as mentioned in the HPI, otherwise negative. PHYSICAL EXAMINATION GENERAL: Ill-appearing, lethargic. Wakes to voice, diaphoretic. VITAL SIGNS: T-max of 94.8, pulse rate of 58, respiratory rate 23, oxygen saturation 100% on 2 L, blood pressure 119/79 on 5 mcg of Levophed. HEENT: Head normocephalic. Pupils equal, round, and reactive. Oropharynx: Mucous membranes are dry. NECK: Supple. No nuchal rigidity. RESPIRATORY: Diminished breath sounds. CARDIAC: Bradycardia with systolic murmur. ABDOMEN: Positive bowel sounds. Positive fluid wave, distended, soft, and nontender. EXTREMITIES: Trace pretibial edema, +1 DP. NEUROLOGIC: The patient is alert and oriented x3. No gross focal neurologic deficits other than he is lethargic but wakes easily. DIAGNOSTIC STUDIES/LAB DATA: White count 6, hemoglobin 10.5, hematocrit 31, platelets 221. Sodium 135, potassium 3.7, chloride 102, bicarb 24, BUN 6, creatinine 0.86, glucose 147, lactic acid 2.8. Total bili 1.6, AST 72, alk phos 131. Alcohol level is 184. Radiographic Data: Head CT: No acute hemorrhage or significant mass effect. EKG shows normal sinus rhythm with a QTc of 519. Chest, abdomen, and pelvis CT report is pending. ASSESSMENT: This is a 63-year-old male with a past medical history of recent diagnosis of prostate cancer and alcohol use who presents to emergency room with weakness, found to be hypotensive. 1. Weakness with altered mental status. Assessment: Somnolent secondary to profound hypotension. It is unclear of the etiology. He is hypothermic, one should be concerned for sepsis in the setting of his abdominal distention and ascites picture. There is concern for spontaneous bacterial peritonitis. The other concern is toxins related, possibly adrenal insufficiency. He states he has been taking Tylenol and aspirin as well as confounded by his alcohol use with an elevated alcohol level , but would not explain for his profound hypotension, could be encephalopathic as well confounded by new onset ascites. Plan: We will admit him to the ICU to continue on Levophed, continue fluid resuscitation. We will give him a dose of albumin as well. We will start him on ceftriaxone for empiric spontaneous bacterial peritonitis coverage until blood cultures are back. We will check a ammonia level, a thyroid, a cortisol, aspirin, Tylenol, and drug screen and follow up on the reading of his CAT scan and obtain an ultrasound as well. We will check an acute hepatitis panel as well. Repeat his labs in the morning. We will follow up on his urine and order a bladder scan with postvoid residual in the setting of his significant ascites. Follow up on his blood cultures and consider paracentesis in the morning. Consider GI consultation as well. 2. Alcohol use. The patient with significant alcohol use. We will place him on the [facility] protocol, currently intoxicated with an alcohol level of 184, although he states he only had 3 drinks throughout the course of the day. 3. Prostate cancer. The patient's surgery is on hold due to abnormal labs, I suspect related to his liver disease. He is supposed to establish care with Dr. Murray next week. 4. FEN. We will keep him n.p.o. with ice chips for now until he is more stable. 5. DVT prophylaxis. The patient scores moderate risk. We will place him on heparin subcu t.i.d. 6. Code status. Full code. PATIENT TIME: Greater than 50 minutes spent doing the history and physical, more than half the time spent in direct patient contact and critical care time. [id number]/[facility] #: [id number] BENJAMIN
[2019-03-20 08:44] LABS: ABS Basophils 0.1 10^3/ul (0-0.2); ABS Eosinophils 0.1 10^3/ul (0-0.6); ABS Lymphocytes 1.2 10^3/ul (1.0-4.8); ABS Monocytes 0.4 10^3/ul (0-0.8); ABS Neutrophils 3.5 10^3/ul (1.5-7.7); Eosinophil % 1.4 %; Hematocrit 33 % (42-52); Lymphocyte % 22.2 %; Mean Corpuscular HGB Conc 34 g/dL (31-36); Mean Corpuscular Hemoglobin 32 pg (27-31); Mean Corpuscular Volume 96 fL (80-94); Mean Platelet Volume 7.4 fL (7.4-10.4); Nucleated Red Blood Cells % 0.1; Platelet Count 197 10^3/uL (150-450); Red Cell Distribution Width 16 % (10.5-15); White Blood Count 5.2 10^3/uL (3.5-10.8)
[2019-03-20 09:02] LABS: INR 1.36 (0.82-1.09)
[2019-03-20 10:01] LABS: Hepatitis B Surface Antigen Nonreactive (Nonreactive)
[2019-03-20] MEDS: Thiamine TAB* 100 MG TAB PO SCH (10:17)
[2019-03-20] MEDS: Multivitamins/Minerals TAB PO SCH (10:17)
[2019-03-20] MEDS: Folic Acid TAB* 1 MG PO SCH (10:17)
[2019-03-20 10:27] LABS: Hepatitis C Antibody Nonreactive (Nonreactive)
--- NOTE | 2019-03-20 14:28 | PN ---
Date of Service: 03/20/19 Critical Care Services: 63 Y/O MALE WITH HX OF ETOH ABUSE ADMITTED EARLIER TODAY WITH ASCITES AND HYPOTENSION REQUIRING VASOPRESSOR RX - AFTER ADMISSION, THE VASOPRESSOR WAS WEANED OFF AND THE BP HAS REMAINED ADEQUATE - THERE IS ALSO NOTHING TO SUGGEST SEPSIS (NO FEVER, LEUKOCYTOSIS, ETC). Vital Signs: Temp Pulse Resp BP SpO2 FiO2 98.1 F 57 14 115/75 96 Physical Exam: Gen:ALERT, ORIENTED HEENT:NO SCLERAL ICTERUS Lungs:CLEAR Cardiac: REG RHYTHM Abdomen:DISTENDED Extremities:NO ASTERIXIS Fluid Balance (Past 24 Hours): 03/21/19 06:59 Intake Total 106 Output Total 780 Balance -674 Weight 222 lb Intake: IV Fluids 106 LR 106 Output: More[place] 780 Labs: 03/20/19 03/20/19 03/20/19 02:44 02:44 02:44 WBC 6.0 RBC 3.24 L Hgb 10.5 L Hct 31 L MCV 96 H MCH 32 H MCHC 34 RDW 16 H Plt Count 221 MPV 7.1 L Neut % (Auto) 61.7 Lymph % (Auto) 23.5 Cochran % (Auto) 9.6 Eos % (Auto) 4.1 Baso % (Auto) 1.1 Absolute Neuts (auto) 3.7 Absolute Lymphs (auto) 1.4 Absolute Monos (auto) 0.6 Absolute Eos (auto) 0.2 Absolute Basos (auto) 0.1 Absolute Nucleated RBC 0.0 Nucleated RBC % 0.0 INR (Anticoag Therapy) Sodium 135 Potassium 3.7 Chloride 102 Carbon Dioxide 24 Anion Gap 9 BUN 6 Creatinine 0.86 Glucose 147 H Lactic Acid 2.8 Calcium 7.6 L Magnesium 2.1 Total Bilirubin 1.60 H AST 72 H ALT 24 Alkaline Phosphatase 131 H Ammonia Troponin I 0.00 C-Reactive Protein 3.06 Total Protein 5.0 L Albumin 2.8 L Globulin 2.2 Albumin/Globulin Ratio 1.3 Prealbumin 9 L Lipase 37 TSH 0.94 Cortisol 21.67 Salicylates < 2.50 Urine Opiates Screen Acetaminophen < 15 Ur Barbiturates Screen Ur Phencyclidine Scrn Ur Amphetamines Screen U Benzodiazepines Scrn Urine Cocaine Screen U Cannabinoids Screen Serum Alcohol 184 Hepatitis A IgM Ab Hep Bs Antigen Hep B Core IgM Ab Hepatitis C Antibody Hepatitis C Ab Index Blood Type Antibody Screen 03/20/19 03/20/1903/20/19 02:44 02:44 03:24 WBC RBC Hgb Hct MCV MCH MCHC RDW Plt Count MPV Neut % (Auto) Lymph % (Auto) Cochran % (Auto) Eos % (Auto) Baso % (Auto) Absolute Neuts (auto) Absolute Lymphs (auto) Absolute Monos (auto) Absolute Eos (auto) Absolute Basos (auto) Absolute Nucleated RBC Nucleated RBC % INR (Anticoag Therapy) Sodium Potassium Chloride Carbon Dioxide Anion Gap BUN Creatinine Est GFR ( Amer) Est GFR (Non-Af Amer) BUN/Creatinine Ratio Glucose Lactic Acid Calcium Magnesium Total Bilirubin AST ALT Alkaline Phosphatase Ammonia Troponin I C-Reactive Protein Total Protein Albumin Globulin Albumin/Globulin Ratio Prealbumin Lipase TSH Cortisol Salicylates Urine Opiates Screen None detected Acetaminophen Ur Barbiturates Screen None detected Ur Phencyclidine Scrn None detected Ur Amphetamines Screen None detected U Benzodiazepines Scrn None detected Urine Cocaine Screen None detected U Cannabinoids Screen None detected Serum Alcohol Hepatitis A IgM Ab Nonreactive Hep Bs Antigen Nonreactive Hep B Core IgM Ab Nonreactive Hepatitis C Antibody Nonreactive Hepatitis C Ab Index < 0.0 Blood Type O Negative Antibody Screen Negative 03/20/19 03/20/19 03/20/19 03:40 06:59 08:24 WBC RBC Hgb Hct MCV MCH MCHC RDW Plt Count MPV Neut % (Auto) Lymph % (Auto) Cochran % (Auto) Eos % (Auto) Baso % (Auto) Absolute Neuts (auto) Absolute Lymphs (auto) Absolute Monos (auto) Absolute Eos (auto) Absolute Basos (auto) Absolute Nucleated RBC Nucleated RBC % INR (Anticoag Therapy) 1.36 H Sodium Potassium Chloride Carbon Dioxide Anion Gap BUN Creatinine Est GFR ( Amer) Est GFR (Non-Af Amer) BUN/Creatinine Ratio Glucose Lactic Acid 2.2 H* Calcium Magnesium Total Bilirubin AST ALT Alkaline Phosphatase Ammonia 72 H Troponin I C-Reactive Protein Total Protein Albumin Globulin Albumin/Globulin Ratio Prealbumin Lipase TSH Cortisol Salicylates Urine Opiates Screen Acetaminophen Ur Barbiturates Screen Ur Phencyclidine Scrn Ur Amphetamines Screen U Benzodiazepines Scrn Urine Cocaine Screen U Cannabinoids Screen Serum Alcohol Hepatitis A IgM Ab Hep Bs Antigen Hep B Core IgM Ab Hepatitis C Antibody Hepatitis C Ab Index Blood Type Antibody Screen 03/20/19 08:26 WBC 5.2 RBC 3.40 L Hgb 11.0 L Hct 33 L MCV 96 H MCH 32 H MCHC 34 RDW 16 H Plt Count 197 MPV 7.4 Neut % (Auto) 67.2 Lymph % (Auto) 22.2 Cochran % (Auto) 8.2 Eos % (Auto) 1.4 Baso % (Auto) 1.0 Absolute Neuts (auto) 3.5 Absolute Lymphs (auto) 1.2 Absolute Monos (auto) 0.4 Absolute Eos (auto) 0.1 Absolute Basos (auto) 0.1 Absolute Nucleated RBC 0.0 Nucleated RBC % 0.1 INR (Anticoag Therapy) Sodium Potassium Chloride Carbon Dioxide Anion Gap BUN Creatinine Est GFR ( Amer) Est GFR (Non-Af Amer) BUN/Creatinine Ratio Glucose Lactic Acid Calcium Magnesium Total Bilirubin AST ALT Alkaline Phosphatase Ammonia Troponin I C-Reactive Protein Total Protein Albumin Globulin Albumin/Globulin Ratio Prealbumin Lipase TSH Cortisol Salicylates Urine Opiates Screen Acetaminophen Ur Barbiturates Screen Ur Phencyclidine Scrn Ur Amphetamines Screen U Benzodiazepines Scrn Urine Cocaine Screen U Cannabinoids Screen Serum Alcohol Hepatitis A IgM Ab Hep Bs Antigen Hep B Core IgM Ab Hepatitis C Antibody Hepatitis C Ab Index Blood Type Antibody Screen Studies: ULTRASOUND OF ABDOMEN - CONSISTENT WITH CIRRHOSIS AND ASCITES Nutrition: REGULAR DIET Impression: 1. ETOH LIVER DISEASE WITH ASCITES (?NEW ONSET) 2. ETOH INTOXICATION 3. NO CLINICAL EVIDENCE OF HEPATIC ENCEPHALOPATHY 4. NO EVIDENCE OF SEPSIS Plan: WILL TRANSFER OUT OF ICU FOR FURTHER MANAGEMENT. WATCH FOR ETOH WITHDRAWAL
[2019-03-20] MEDS: LORazepam INJ* 2 MG/ML 1 ML VIAL IV PUSH SCH ×2 (21:30→23:01)
[2019-03-21] MEDS: Lactated Ringers 1000 ML Bag* 1,000 ML IV SCH (02:17)
[2019-03-21 02:33] LABS: Urine Appearance Cloudy; Urine Bacteria 1+ (Absent); Urine Bilirubin Negative (Negative); Urine Blood Negative (Negative); Urine Color Amber; Urine Glucose Negative (Negative); Urine Ketones Trace (Negative); Urine Nitrite Negative (Negative); Urine Protein 2+(100 mg/dL) (Negative); Urine Red Blood Cell 3+(>10/hpf) (Absent); Urine Specific Gravity 1.024 (1.010-1.030); Urine Squamous Epithelial Cell Present (Absent); Urine Urobilinogen Negative (Negative); Urine White Blood Cell Trace(0-5/hpf) (Absent)
[2019-03-21] MEDS ORDERED: cefTRIAXone(*) 2 GM in NS 0.9% 100 ML* 100 ML IVPB SCH (05:00)
[2019-03-21] MEDS: Heparin VIAL(*) 5000 UNITS/ML VIAL (FIVE THOUSAND) SUBCUT SCH (06:02)
[2019-03-21 06:46] LABS: Hematocrit 30 % (42-52); Hemoglobin 10.2 g/dL (14.0-18.0); Mean Corpuscular HGB Conc 34 g/dL (31-36); Mean Corpuscular Hemoglobin 33 pg (27-31); Mean Corpuscular Volume 97 fL (80-94); Mean Platelet Volume 7.6 fL (7.4-10.4); Platelet Count 133 10^3/uL (150-450); Red Blood Count 3.12 10^6 /uL (4.18-5.48); Red Cell Distribution Width 16 % (10.5-15); White Blood Count 3.2 10^3/uL (3.5-10.8)
[2019-03-21 06:58] LABS: Albumin 2.8 g/dL (3.2-5.2); Calcium 7.8 mg/dL (8.6-10.3); Potassium 4.2 mmol/L (3.5-5.0); Total Bilirubin 3.2 mg/dL (0.2-1.0)
[2019-03-21 07:04] LABS: Albumin/Globulin Ratio 1.4 (1-3); BUN/Creatinine Ratio 12.7 (8-20); EGFR African American 136.5 (>60); EGFR Non-African American 112.8 (>60); Total Protein 4.8 g/dL (6.4-8.9)
[2019-03-21] MEDS: Folic Acid TAB* 1 MG PO SCH (08:54)
[2019-03-21] MEDS: Multivitamins/Minerals TAB PO SCH (08:54)
[2019-03-21] MEDS: Thiamine TAB* 100 MG TAB PO SCH (08:54)
[2019-03-21] MEDS: NS 0.9% 1000 ML** 1,000 ML IV SCH (12:34)
[2019-03-21] MEDS: Lactulose* 15 ML UDC PO SCH ×2 (12:40→21:39)
--- NOTE | 2019-03-21 14:40 | PN ---
Subjective Date of Service: 03/21/19 Interval History: Patient seen today, alert. report persistent abdominal bloating. otherwise no events overnight. He remains on CIWA. Moreno catheter remains in he would like it removed. tolerating po well. Past Medical History: Unchanged from Admission Objective Active Medications: Folic Acid (Folvite Tab*) 1 mg PO DAILY [facility] Last Admin: 03/21/19 08:54 Dose: 1 mg Sodium Chloride (Ns 0.9% 1000 Ml) 1,000 mls @ 100 mls/hr IV .per rate [facility] Last Admin: 03/21/19 12:34 Dose: 100 mls/hr Lactulose (Lactulose*) 15 ml PO BID [facility] Last Admin: 03/21/19 12:40 Dose: 15 ml Lorazepam (Ativan Inj*) 0 - 3 mg IV PUSH .PER [facility] PROTOCOL [facility]; Protocol Last Admin: 03/20/19 23:01 Dose: 2 mg Miscellaneous (Ativan Pyxis Noriega) 1 ea N/A .PYXIS NORIEGA PRN PRN Reason: PER PROTOCOL Multivitamins/Minerals (Theragran/Minerals Tab*) 1 tab PO DAILY [facility] Last Admin: 03/21/19 08:54 Dose: 1 tab Thiamine HCl (Vitamin B-1 Tab*) 100 mg PO DAILY [facility] Last Admin: 03/21/19 08:54 Dose: 100 mg Tizanidine HCl (Zanaflex Tab*) 2 mg PO BID [facility] Vital Signs - 8 hr 03/21/19 03/21/19 03/21/19 08:00 08:46 10:28 Temperature 98.4 F 98.3 F Pulse Rate 84 100 Respiratory 16 18 20 Rate Blood Pressure 148/83 135/80 (mmHg) O2 Sat by Pulse 96 95 Oximetry Oxygen Devices in Use Now: None Appearance: awake, alert. no distress Eyes: No Scleral Icterus, - - EOMI Ears/Nose/Mouth/Throat: NL Teeth, Lips, Gums, Mucous Membranes Moist Neck: NL Appearance and Movements; NL JVP, Trachea Midline Respiratory: Symmetrical Chest Expansion and Respiratory Effort, Clear to Auscultation Cardiovascular: NL Sounds; No Murmurs; No JVD, RRR, No Edema Abdominal: NL Sounds; No Tenderness; No Distention Extremities: No Edema Neurological: Alert and Oriented x 3 Result Diagrams: 03/21/19 06:33 03/21/19 06:33 Microbiology and Other Data: Microbiology 03/20/19 03:37 Aerobic Blood Culture - Preliminary Blood Venous No Growth Day 1 Anaerobic Blood Culture - Final Not Reportable 03/20/19 03:37 Aerobic Blood Culture - Preliminary Blood Venous No Growth Day 1 Anaerobic Blood Culture - Preliminary No Growth Day 1 03/20/19 09:10 Nasal Screen MRSA (PCR) - Final Nasal Mrsa Not Detected Assess/Plan/Problems-Billing Assessment: 63 y/o male admitted for hyotension, lethargy found with ETOH intoxication, admitted to ICU overnight from 03/19 to 03/20 on vasopressor and empirically antibiotics and was transferred out of the ICU on 03/20/19. He is being seen by me today as my intial encounter with the patient on [address] off Antibiotics now for 24hrs. - Patient Problems (1) Shock circulatory Current Visit: Yes Status: Acute Code(s): R57.9 - SHOCK, UNSPECIFIED SNOMED Code(s): 15394702 Comment: - s/p hypotensive shock on presentations required multiple IVF bolus , Abx and vasopressors on admission 03/19/19. His Blood cultures so far negative at the 24 hrs window. He transferred out of the ICU the very next day 03/20/19 off antibiotics. Being seen by me for initial encounter on 03/21/19. - At this time he appears to be clinically stable, however it his hard to tell now if he will remains well off the antibiotics (as he could have been partially treated) or not. Will keep him off the antibiotics and monitor for any sign of deteriorations while off the antibiotics. - If he remain afebrile than most likely his hypotension is probably due to volume shock due to ascites. Currently on IVF will change it to NS. In am we may need to initiate (carefully) treatment for ascites with lasix, aldactone etc... - I did call for GI consult, Dr. Hatch called via the swithboard left a voicemail via the switchboard. (2) Ascites Current Visit: Yes Status: Acute Code(s): R18.8 - OTHER ASCITES SNOMED Code(s): 323638774 Comment: - Could be the cause of his hypotension - Off antibiotics within 24hrs. Monitor for reccurent hypotension and fever as we may need to consider SBP - At this time he appears to be clinically stable, however it his hard to tell now if he will remains well off the antibiotics (as he could have been partially treated) or not. - I did call for GI consult, Dr. Hatch and left him a message (3) Hyperbilirubinemia Current Visit: Yes Status: Acute Code(s): E80.6 - OTHER DISORDERS OF BILIRUBIN METABOLISM SNOMED Code(s): 41324423 Comment: - Probably due to his biliary stasis - CT scan reveals heterogenous liver lesion, recommended repeat with IV study - I will await GI input and will proceed with further study accordingly (4) Splenomegaly Current Visit: Yes Status: Acute Code(s): R16.1 - SPLENOMEGALY, NOT ELSEWHERE CLASSIFIED SNOMED Code(s): 03895251 Comment: - ETOH and Cirrohsis related, (5) Cirrhosis of liver Current Visit: Yes Status: Acute Comment: - CT scan reveals cirrhosis and heterogenous liver lesion, recommended repeat with IV study - I will await GI intput and will proceed with further study accordingly. - Once BP recover we may need to carefully initiate treatment for ascites with lasix, aldactone etc... (6) Alcohol abuse Current Visit: Yes Status: Acute Code(s): F10.10 - ALCOHOL ABUSE, UNCOMPLICATED SNOMED Code(s): 08545455 Comment: - Remains on [facility] protocol - laboratory worker consult placed - Will need 24hrs post benzo before discontinue his benzo. As of today his last dose was saturday03/20/19 11 pm (7) DVT prophylaxis Current Visit: Yes Status: Acute Code(s): Z29.9 - ENCOUNTER FOR PROPHYLACTIC MEASURES, UNSPECIFIED SNOMED Code(s): 489282326 Comment: - Discontinued his heparin due to liver cirrhosis - Ambulate tid
--- NOTE | 2019-03-21 16:45 | CONS ---
CONSULTATION REPORT: DATE OF CONSULT: 03/21/19 REQUESTING PHYSICIAN: Dr. Rivero. HISTORY OF PRESENT ILLNESS: Mr. Moyer is a pleasant 63-year-old gentleman, who has consumed an excessive amount of alcohol for a good portion of his life. He states that he has been drinking upwards of 5 to 6 alcoholic beverages per day. He states that over the past few days, he has noticed worsening abdominal distention, increased abdominal girth. He denies any nausea, no vomiting. He came to the emergency room feeling very weak. He was admitted to the hospital overnight with a presumed diagnosis of hypotension due to sepsis. The patient states that he never had any black or tarry stools. He denies any blood in the stool. No unintentional weight loss. No family history of liver disease. He is feeling better at this time. He states that his bloating and distention is less than it was before. He is tolerating a regular diet and does feel better. PAST MEDICAL HISTORY: Significant for prostate cancer, cervical stenosis. MEDICATIONS: Include: 1. Ibuprofen. 2. Aspirin. ALLERGIES: None. FAMILY HISTORY: No liver disease in the family. SOCIAL HISTORY: His last alcoholic beverage was a few days ago. He denies any tobacco. REVIEW OF SYSTEMS: Twelve systems were reviewed, other than that mentioned in the HPI were unremarkable. And PHYSICAL EXAM: General: A chronically ill-appearing male in no apparent distress, alert, oriented, pleasant, and fluent. Vital Signs: Temperature is 98.3, blood pressure is 135/80, pulse is 100, respiratory rate of 20, O2 sat is 95%. HEENT: Mucous membranes are moist without lesions, ulcers, or exudate. Sclerae are slightly icteric. Conjunctiva are not pale. Heart: Regular rate and rhythm. Lungs: Clear to auscultation. No wheezes, rales or rhonchi. Abdomen: Distended and obese. Positive bowel sounds, soft. He has dull flanks. No rebound or guarding. Skin: Warm and dry. Neurologic: Negative for asterixis. DIAGNOSTIC STUDIES/LAB DATA: Labs of note, INR is 1.36, sodium is 134, bilirubin 3.2, creatinine 0.71. His MELD is 17. White count is 3.2, hemoglobin is 10.2, platelets of 133. AST is 60, alk phos is 118. His hepatitis is A, B, C are all negative. He does have a CT abdomen and pelvis, which shows ascites and cirrhotic- appearing liver. ASSESSMENT AND PLAN: This is a pleasant 63-year-old gentleman with cirrhosis and resulting ascites, encephalopathy. At this point, we do need to control his ascites. I think once his hypotension improve, we can start Lasix and Aldactone, at 40 mg of Lasix and 100 mg Aldactone and monitor his kidney function closely. Additionally, agree with the usage of lactulose. At this point, he will need an EGD at some point to look for varices. We also discussed abstinence of alcohol and we will continue to follow along very closely. [id number]/[facility] #: [id number] [facility]
[2019-03-21] MEDS: tiZANidine TAB* 2 MG PO SCH (21:39)
[2019-03-22] MEDS: NS 0.9% 1000 ML** 1,000 ML IV SCH (00:13)
[2019-03-22 06:46] LABS: ABS Eosinophils 0.1 10^3/ul (0-0.6); ABS Lymphocytes 0.8 10^3/ul (1.0-4.8); ABS Monocytes 0.3 10^3/ul (0-0.8); ABS Neutrophils 1.6 10^3/ul (1.5-7.7); Eosinophil % 4.2 %; Hematocrit 30 % (42-52); Hemoglobin 10.1 g/dL (14.0-18.0); Lymphocyte % 27.7 %; Mean Corpuscular HGB Conc 34 g/dL (31-36); Mean Corpuscular Hemoglobin 33 pg (27-31); Mean Corpuscular Volume 96 fL (80-94); Mean Platelet Volume 7.2 fL (7.4-10.4); Nucleated Red Blood Cells % 0.1; Platelet Count 129 10^3/uL (150-450); Red Cell Distribution Width 15 % (10.5-15); White Blood Count 2.8 10^3/uL (3.5-10.8)
[2019-03-22 07:01] LABS: Albumin 2.9 g/dL (3.2-5.2); Albumin/Globulin Ratio 1.5 (1-3); BUN/Creatinine Ratio 11.4 (8-20); Calcium 7.9 mg/dL (8.6-10.3); EGFR African American 138.7 (>60); EGFR Non-African American 114.6 (>60); Indirect Bilirubin 1.4 mg/dL (0.3-1.0); Magnesium 1.8 mg/dL (1.9-2.7); Potassium 3.8 mmol/L (3.5-5.0); Total Bilirubin 2.4 mg/dL (0.2-1.0); Total Protein 4.9 g/dL (6.4-8.9)
[2019-03-22] MEDS: Lactulose* 15 ML UDC PO SCH ×2 (08:01→20:51)
[2019-03-22] MEDS: tiZANidine TAB* 2 MG PO SCH ×2 (08:01→20:51)
[2019-03-22] MEDS: Thiamine TAB* 100 MG TAB PO SCH (08:01)
[2019-03-22] MEDS: Folic Acid TAB* 1 MG PO SCH (08:01)
[2019-03-22] MEDS: Multivitamins/Minerals TAB PO SCH (08:01)
[2019-03-22] MEDS ORDERED: LORazepam TAB(*) 1 MG PO PRN (08:05)
--- NOTE | 2019-03-22 08:48 | PN ---
Subjective Date of Service: 03/22/19 Interval History: Patient has signficant anxiety. Has not required ativan per [facility] protocol in 36 hours. He is anxious about his Nathaniel 9 prostate cancer. Prostatectomy planned recently was cancelled due to coagulation issues. He is ambulatory, tolerating food well. Dr. Hatch consulted yesterday, advised to start diuretics once BP improved. Family History: Unchanged from Admission Social History: Unchanged from Admission Past Medical History: Unchanged from Admission Objective Active Medications: Folic Acid (Folvite Tab*) 1 mg PO DAILY [facility] Last Admin: 03/22/19 08:01 Dose: 1 mg Lactulose (Lactulose*) 15 ml PO BID [facility] Last Admin: 03/22/19 08:01 Dose: 15 ml Lorazepam (Ativan Tab(*)) per [facility] protocol Multivitamins/Minerals (Theragran/Minerals Tab*) 1 tab PO DAILY [facility] Last Admin: 03/22/19 08:01 Dose: 1 tab Thiamine HCl (Vitamin B-1 Tab*) 100 mg PO DAILY [facility] Last Admin: 03/22/19 08:01 Dose: 100 mg Tizanidine HCl (Zanaflex Tab*) 2 mg PO BID [facility] Last Admin: 03/22/19 08:01 Dose: 2 mg Vital Signs - 8 hr 03/22/19 03/22/19 03/22/19 02:08 04:09 07:28 Temperature 36.8 C 36.8 C 36.8 C Pulse Rate 80 75 85 Respiratory 20 18 16 Rate Blood Pressure 117/68 127/73 161/95 (mmHg) O2 Sat by Pulse 95 96 99 Oximetry Oxygen Devices in Use Now: None Appearance: alert, no distress Eyes: No Scleral Icterus Ears/Nose/Mouth/Throat: NL Teeth, Lips, Gums Neck: NL Appearance and Movements; NL JVP Respiratory: Symmetrical Chest Expansion and Respiratory Effort, Clear to Auscultation Cardiovascular: NL Sounds; No Murmurs; No JVD, RRR Abdominal: No Hepatosplenomegaly, - - soft, obese, no masses, distended Lymphatic: No Cervical Adenopathy Extremities: No Edema Neurological: Alert and Oriented x 3 Lines/Tubes/Other Access: Clean, Dry and Intact Peripheral IV Result Diagrams: 03/22/19 06:25 03/22/19 06:25 Additional Lab and Data: Laboratory Tests 03/21/19 03/22/19 08:32 06:25 Calcium 7.9 L Magnesium 1.8 L Total Bilirubin 2.40 H AST 52 H ALT 19 Ammonia 85 H Microbiology and Other Data: Microbiology 03/21/19 02:00 Urine Urine Culture - Final No Growth (<1,000 CFU/mL) 03/20/19 09:10 Nasal Nasal Screen MRSA (PCR) - Final Mrsa Not Detected 03/20/19 03:37 Blood Venous Anaerobic Blood Culture - Final Not Reportable 03/20/19 03:37 Blood Venous Aerobic Blood Culture - Preliminary 03/20/19 03:37 Blood Venous Anaerobic Blood Culture - Preliminary No Growth Day 2 No Growth Day 2 03/20/19 03:37 Blood Venous Aerobic Blood Culture - Preliminary 03/20/19 03:37 Blood Venous No Growth Day 2 Assess/Plan/Problems-Billing Assessment: 63 y/o male admitted for hypotension, lethargy found with ETOH intoxication, admitted to ICU overnight from 03/19 to 03/20 on vasopressor and empirically antibiotics and was transferred out of the ICU on 03/20/19. - Patient Problems (1) Alcohol abuse Current Visit: Yes Status: Acute Priority: High Code(s): F10.10 - ALCOHOL ABUSE, UNCOMPLICATED SNOMED Code(s): 38647715 Comment: - No longer requires [place] protocol - transplant worker consult placed - Will treat anxiety with ativan PRN, and add sertraline to prevent anxiety (2) Cirrhosis of liver Current Visit: Yes Status: Acute Priority: High Comment: - GI consult appreciated - Will initiate treatment for ascites with lasix, aldactone - LFTs improving, but ammonia high. Ammonia is poorly correlated with severity of hepatitis, cirrhosis, will follow. (3) Prostate cancer Current Visit: Yes Status: Acute Priority: Medium Code(s): C61 - MALIGNANT NEOPLASM OF PROSTATE SNOMED Code(s): 732635153 Comment: -Discussed treatment plans -Will reschedule prostatectomy -Many other treatment regimens will likely extend life 10+ years (4) DVT prophylaxis Current Visit: Yes Status: Acute Priority: Low Code(s): Z29.9 - ENCOUNTER FOR PROPHYLACTIC MEASURES, UNSPECIFIED SNOMED Code(s): 273310801 Comment: - Ambulate tid Status and Disposition: likely discharge tomorrow
[2019-03-22] MEDS: Spironolactone TAB* 25 MG PO SCH (09:01)
[2019-03-22] MEDS: Furosemide TAB* 20 MG PO SCH (09:02)
[2019-03-22] MEDS: Sertraline* 25 MG TAB PO SCH (09:02)
[2019-03-22] MEDS: Magnesium Oxide TAB* 400 MG PO SCH (09:02)
[2019-03-23 06:52] LABS: Activated Partial Thrombo Time 33.7 seconds (26.0-36.3); INR 1.38 (0.82-1.09)
[2019-03-23 06:58] LABS: BUN/Creatinine Ratio 11.6 (8-20); Calcium 8.1 mg/dL (8.6-10.3); EGFR Non-African American 116.6 (>60); Magnesium 1.8 mg/dL (1.9-2.7); Potassium 3.9 mmol/L (3.5-5.0)
[2019-03-23] MEDS: Spironolactone TAB* 25 MG PO SCH (08:59)
[2019-03-23] MEDS: Magnesium Oxide TAB* 400 MG PO SCH (09:00)
[2019-03-23] MEDS: Furosemide TAB* 20 MG PO SCH (09:00)
[2019-03-23] MEDS: Folic Acid TAB* 1 MG PO SCH (09:00)
[2019-03-23] MEDS: Sertraline* 25 MG TAB PO SCH (09:00)
[2019-03-23] MEDS: Thiamine TAB* 100 MG TAB PO SCH (09:00)
[2019-03-23] MEDS: Multivitamins/Minerals TAB PO SCH (09:00)
[2019-03-23] MEDS: tiZANidine TAB* 2 MG PO SCH (09:00)
[2019-03-23] MEDS: Lactulose* 15 ML UDC PO SCH (09:00)
[2019-03-23 15:54] VITALS: BP 130/84
[2019-03-23] MEDS ORDERED: Magnesium Oxide TAB* 400 MG PO SCH (21:00)
--- NOTE | 2019-03-24 12:44 | DS ---
CC: Dr. Daniel Yanes, [facility] in [place]; Dr. Angel Hatch; Dr. Robert Murray DISCHARGE SUMMARY: DATE OF ADMISSION: 03/20/19 DATE OF DISCHARGE: 03/23/19 PRIMARY DIAGNOSIS: Alcoholic cirrhosis with decompensation. SECONDARY DIAGNOSES: 1. Ascites. 2. Ongoing alcohol abuse. 3. Anxiety disorder. 4. Prostate cancer, Nathaniel 9. 5. Chronic back pain. MEDICATIONS ON DISCHARGE: 1. Multivitamin 1 tab p.o. q. day. 2. Tizanidine 2 mg p.o. b.i.d. 3. Folic acid 1 mg p.o. q. day. 4. Furosemide 20 mg p.o. q.a.m. 5. Lactulose 15 mg p.o. b.i.d. 6. Magnesium oxide 400 mg p.o. b.i.d. 7. Spironolactone 50 mg p.o. q.a.m. 8. Thiamine 100 mg p.o. q. day. HOSPITAL COURSE: The patient was admitted through the emergency department with progressive weakness and lightheadedness and bloating of the abdomen. He was initially hypotensive and he was treated wi th 3 L of normal saline and started on Levophed. After admission to the intensive care unit, his blo od pressure stabilized and he was able to be weaned off pressors. His initial lactic acid was 2.8, w hich fell to 2.2 with hydration. Sodium was 135 on admission and fell to 134 on the second day. His AST was 72, ALT 24, alkaline phosphatase 132. TSH 0.94, cortisol 21.67. Initial ammonia level was 72 and this climbed to 85 on the second day of admission. Chest, abdomen and pelvis performed on adm ission showed atelectasis at the base, both lung rojo. The abdo/pelvis scan showed cirrhotic liver with heterogenous densities in the liver, a large volume of abdominal ascites, splenomegaly. Follow up abdominal ultrasound did not demonstrate any focal hepatic masses. The gallbladder had nonspecifi c thickening and there was a moderate volume of ascites. The patient was assessed to have a new diag nosis of alcoholic cirrhosis with decompensation causing ascites and hyperammonemia. His INR was 1.3 6 and 1.38 when measured in the hospital showing some loss of hepatic function of the liver as well. The patient was seen in consultation by Dr. Hatch, Gastroenterology. Dr. Hatch advised treating his ascites and titrating up Lasix to 40 mg per day and Aldactone 100 mg per day with monitoring of his blood pressure and kidney function closely. He also agreed with the use of Lactulose to lower th e ammonia level. Dr. Hatch tends to see the patient as an outpatient and have endoscopy to look at for varices. Of course, he and every one in the hospital advised him to stop drinking alcohol. The patient was treated with the [facility] protocol for alcohol withdrawal. He only required treatment in the first 24 hours and after that it was stable. He did have some anxiety and he had a few more mill igrams of Ativan for anxiety. He was advised to start on SSRI such as sertraline to treat anxiety, b ut he was resistant to starting this as he had bad experiences with Wellbutrin and Cymbalta in the [facility]. He is advised to follow up with primary care about the alcohol use and will be referred to the [facility] [place] or other outpatient facility on discharge. The patient does report that he has diagnosis of prostate cancer and plans to see Dr. Murray on the day after discharge. Part of his decompensation and increased alcohol use had to do with the diagnosis of prostate cancer and the cancellation of planned prostatectomy due to abnormal coagulation studies. At the time of discharge, the patient is realistic and willing to meet with Oncology and Urology [facility] to have the prostate cancer addressed and he was counseled he has to stay off of alcohol to make that surgery safe as possible. DISPOSITION: Home. STATUS WHILE IN THE HOSPITAL: Inpatient. CONDITION ON ADMISSION: Guarded, but is stable on discharge. DIET: Should be high-protein diet. ACTIVITY: Should as tolerated. FOLLOWUP: He should follow up with primary care within 1 week and have repeat electrolytes and titra tion of his diuretics upward as possible. He should also see Oncology and Urology in the next few we eks. TIME SPENT: I spent 45 minutes with this patient planning discharge and arranging necessary referral s and completing necessary paper work. [id number]/[facility] #: [id number]
== END 2019-03-23 18:00 | disposition home or self-care (01) | DRG 432 ==
LOC: EDBD → ED 02:33 → ICU 07:59 → MERGE 07:59 → MED 17:18
PROVIDERS: ADMIT Internal Medicine Critical Care Medicine; ATTEND Internal Medicine
DX: K70.31 Alcoholic cirrhosis of liver with ascites (principal); R57.8 Other shock; E72.20 Disorder of urea cycle metabolism, unspecified; F10.239 Alcohol dependence with withdrawal, unspecified; I95.9 Hypotension, unspecified; F10.229 Alcohol dependence with intoxication, unspecified; Y90.6 Blood alcohol level of 120-199 mg/100 ml; F41.9 Anxiety disorder, unspecified; C61 Malignant neoplasm of prostate; R68.0 Hypothermia, not associated with low environmental temperature; M54.9 Dorsalgia, unspecified; R16.1 Splenomegaly, not elsewhere classified; E80.6 Other disorders of bilirubin metabolism; Z79.82 Long term (current) use of aspirin; Z79.1 Long term (current) use of non-steroidal anti-inflammatories (NSAID)
CPT/HCPCS: 36415; 70450; 71250; 74176; 76705; 80048; 80053; 80074; 80076; 80307; 80320; 80329; 81003; 81015; 82140; 82533; 83605; 83690; 83735; 84100; 84134; 84443; 84484; 85025; 85027; 85610; 85730; 86140; 86850; 86900; 86901; 87040; 87086; 87641; 93005; 99285; A9270-GY; G0480; J0696; J1644; J2060; J3411; P9047

== ENCOUNTER 2020-06-28 20:46 | Inpatient (IN) ==
[2020-06-28] MEDS ORDERED: Octreotide Acetate 50 MCG/ML ML IV SLOW PU ONE (22:53)
[2020-06-28 23:16] LABS: ABS Eosinophils 0.1 10^3/ul (0-0.6); ABS Lymphocytes 0.3 10^3/ul (1.0-4.8); ABS Monocytes 0.2 10^3/ul (0-0.8); ABS Neutrophils 2.1 10^3/ul (1.5-7.7); Eosinophil % 2.8 %; Hematocrit 16 % (42-52); Hemoglobin 5.1 g/dL (14.0-18.0); Lymphocyte % 12.7 %; Mean Corpuscular HGB Conc 33 g/dL (31-36); Mean Corpuscular Hemoglobin 28 pg (27-31); Mean Corpuscular Volume 86 fL (80-94); Mean Platelet Volume 7.4 fL (7.4-10.4); Platelet Count 90 10^3/uL (150-450); Red Blood Count 1.81 10^6 /uL (4.18-5.48); Red Cell Distribution Width 17 % (10-15); White Blood Count 2.8 10^3/uL (3.5-10.8)
[2020-06-28 23:19] LABS: Activated Partial Thrombo Time 34.1 seconds (26.0-38.0); INR 1.37 (0.82-1.09)
[2020-06-28] MEDS: Pantoprazole 80 mg in NS BAG 80 MG/250 ML BAG IV SCH (23:22)
[2020-06-28] MEDS: cefTRIAXone 2 GM ADDV.VIAL 2 GM in NS 0.9% 100 ml BAG 100 ML IV SCH (23:22)
[2020-06-28] MEDS: Octreotide Acetate 500 MCG in NS 0.9% 100 ml BAG 100 ML IV SCH (23:22)
[2020-06-28 23:30] LABS: ALT 14 U/L (7-52); AST 27 U/L (13-39); Albumin 2.8 g/dL (3.2-5.2); Albumin/Globulin Ratio 1.4 (1-3); Alkaline Phosphatase 82 U/L (34-104); Anion Gap 6 mmol/L (2-11); BUN/Creatinine Ratio 10.1 (8-20); Blood Urea Nitrogen 11 mg/dL (6-24); CO2 Carbon Dioxide 23 mmol/L (22-32); Chloride 110 mmol/L (101-111); EGFR African American 82.9 (>60); EGFR Non-African American 68.5 (>60); Glucose 118 mg/dL (70-100); Magnesium 1.9 mg/dL (1.9-2.7); Sodium 139 mmol/L (135-145); Total Protein 4.8 g/dL (6.4-8.9)
[2020-06-28 23:31] LABS: Troponin I 0.01 ng/mL (<0.03)
[2020-06-29 03:31] LABS: Albumin 2.8 g/dL (3.2-5.2); Calcium 8.1 mg/dL (8.6-10.3); Potassium 4.7 mmol/L (3.5-5.0); Total Bilirubin 1.6 mg/dL (0.2-1.0)
[2020-06-29 03:32] LABS: ABS Eosinophils 0.1 10^3/ul (0-0.6); ABS Lymphocytes 0.4 10^3/ul (1.0-4.8); ABS Monocytes 0.2 10^3/ul (0-0.8); ABS Neutrophils 1.8 10^3/ul (1.5-7.7); Eosinophil % 3.7 %; Hematocrit 18 % (42-52); Hemoglobin 6.1 g/dL (14.0-18.0); Lymphocyte % 15.5 %; Mean Corpuscular HGB Conc 33 g/dL (31-36); Mean Corpuscular Hemoglobin 28 pg (27-31); Mean Corpuscular Volume 86 fL (80-94); Mean Platelet Volume 7.9 fL (7.4-10.4); Nucleated Red Blood Cells % 0.1; Platelet Count 85 10^3/uL (150-450); Red Blood Count 2.14 10^6 /uL (4.18-5.48); Red Cell Distribution Width 16 % (10-15); White Blood Count 2.6 10^3/uL (3.5-10.8)
[2020-06-29 03:37] LABS: Albumin/Globulin Ratio 1.4 (1-3); BUN/Creatinine Ratio 10.1 (8-20); EGFR African American 82.9 (>60); EGFR Non-African American 68.5 (>60); Total Protein 4.8 g/dL (6.4-8.9)
[2020-06-29] MEDS: Octreotide Acetate 500 MCG in NS 0.9% 100 ml BAG 100 ML IV SCH ×2 (08:36→19:46)
[2020-06-29] MEDS: Thiamine IV 100 MG in NS 0.9% 50 ML Q24H IV SCH (08:37)
[2020-06-29 08:52] LABS: Hematocrit 20 % (42-52); Hemoglobin 6.6 g/dL (14.0-18.0)
[2020-06-29] MEDS ORDERED: Thiamine 100 MG/ML 2 ml VIAL (200 mg) IV SCH (09:00)
[2020-06-29] MEDS: Pantoprazole 80 mg in NS BAG 80 MG/250 ML BAG IV SCH ×2 (09:18→19:46)
[2020-06-29 14:46] LABS: Hematocrit 22 % (42-52); Hemoglobin 7.7 g/dL (14.0-18.0)
[2020-06-29 15:34] LABS: % Iron Saturation 5 % (15-55); Iron < 20 ug/dL (50-212); LDH 177 U/L (140-271); Total Iron Binding Capacity 371 mcg/dL (250-450); Transferrin 265 mg/dL (203-362); Unsaturated Iron Binding < 356 ug/dL
[2020-06-29 16:02] LABS: Ferritin 6.8 ng/mL (24-336)
[2020-06-29 20:56] LABS: Hematocrit 24 % (42-52); Hemoglobin 8.2 g/dL (14.0-18.0)
[2020-06-29] MEDS ORDERED: PEG 3000 GI LAVAGE 1 GALLON PO ONE (21:00)
[2020-06-29] MEDS: cefTRIAXone 2 GM ADDV.VIAL 2 GM in NS 0.9% 100 ml BAG 100 ML IV SCH (23:23)
[2020-06-30] MEDS: Pantoprazole 80 mg in NS BAG 80 MG/250 ML BAG IV SCH (05:29)
[2020-06-30] MEDS: Octreotide Acetate 500 MCG in NS 0.9% 100 ml BAG 100 ML IV SCH ×2 (05:29→17:58)
[2020-06-30 06:24] LABS: Albumin 3.2 g/dL (3.2-5.2); Albumin/Globulin Ratio 1.4 (1-3); BUN/Creatinine Ratio 8.7 (8-20); Calcium 8.5 mg/dL (8.6-10.3); EGFR African American 87.6 (>60); EGFR Non-African American 72.4 (>60); Globulin 2.3 g/dL (2-4); Total Bilirubin 2.2 mg/dL (0.2-1.0); Total Protein 5.5 g/dL (6.4-8.9)
[2020-06-30 10:21] LABS: ABS Eosinophils 0.1 10^3/ul (0-0.6); ABS Lymphocytes 0.7 10^3/ul (1.0-4.8); ABS Monocytes 0.4 10^3/ul (0-0.8); ABS Neutrophils 2.3 10^3/ul (1.5-7.7); Eosinophil % 3.8 %; Hematocrit 24 % (42-52); Hemoglobin 8.1 g/dL (14.0-18.0); Mean Corpuscular HGB Conc 33 g/dL (31-36); Mean Corpuscular Hemoglobin 28 pg (27-31); Mean Corpuscular Volume 85 fL (80-94); Mean Platelet Volume 7.2 fL (7.4-10.4); Nucleated Red Blood Cells % 0.1; Platelet Count 100 10^3/uL (150-450); Red Blood Count 2.89 10^6 /uL (4.18-5.48); Red Cell Distribution Width 17 % (10-15); White Blood Count 3.5 10^3/uL (3.5-10.8)
[2020-06-30] MEDS: Thiamine IV 100 MG in NS 0.9% 50 ML Q24H IV SCH (10:26)
[2020-06-30] MEDS ORDERED: Pantoprazole VIAL 40 MG VIAL IV SCH (13:00)
[2020-06-30] MEDS ORDERED: fentaNYL 100 mcg/2 ml 50 MCG/ML VIAL ONE (14:48)
[2020-06-30] MEDS ORDERED: Midazolam 10 mg/10 ml VIAL 1 mg/ml 10 ml VIAL (10 mg) ONE (14:48)
[2020-06-30] MEDS ORDERED: diPHENhydraMINE IV 50 MG/ML 1 ml VIAL (BENADRYL) ONE (14:48)
[2020-06-30] MEDS ORDERED: hydrALAZINE 20 mg/ml 1 ML Vial IV IV SLOW PU PRN (17:17)
[2020-06-30 21:25] LABS: Hematocrit 23 % (42-52); Hemoglobin 7.6 g/dL (14.0-18.0)
[2020-06-30] MEDS: cefTRIAXone 2 GM ADDV.VIAL 2 GM in NS 0.9% 100 ml BAG 100 ML IV SCH (23:32)
[2020-07-01 06:57] LABS: ABS Eosinophils 0.2 10^3/ul (0-0.6); ABS Lymphocytes 0.5 10^3/ul (1.0-4.8); ABS Monocytes 0.3 10^3/ul (0-0.8); ABS Neutrophils 1.6 10^3/ul (1.5-7.7); Eosinophil % 6.5 %; Hematocrit 24 % (42-52); Hemoglobin 7.9 g/dL (14.0-18.0); Lymphocyte % 19.7 %; Mean Corpuscular HGB Conc 34 g/dL (31-36); Mean Corpuscular Hemoglobin 29 pg (27-31); Mean Corpuscular Volume 86 fL (80-94); Mean Platelet Volume 7.3 fL (7.4-10.4); Nucleated Red Blood Cells % 0.1; Platelet Count 91 10^3/uL (150-450); Red Blood Count 2.73 10^6 /uL (4.18-5.48); Red Cell Distribution Width 17 % (10-15); White Blood Count 2.6 10^3/uL (3.5-10.8)
[2020-07-01 06:59] LABS: Albumin/Globulin Ratio 1.4 (1-3); BUN/Creatinine Ratio 7.8 (8-20); Calcium 8.4 mg/dL (8.6-10.3); EGFR African American 88.5 (>60); EGFR Non-African American 73.2 (>60); Globulin 2.2 g/dL (2-4); Magnesium 1.9 mg/dL (1.9-2.7); Potassium 3.8 mmol/L (3.5-5.0); Total Bilirubin 1.8 mg/dL (0.2-1.0); Total Protein 5.2 g/dL (6.4-8.9)
[2020-07-01] MEDS: Thiamine IV 100 MG in NS 0.9% 50 ML Q24H IV SCH (09:20)
[2020-07-01 13:44] LABS: Hematocrit 23 % (42-52); Hemoglobin 8.1 g/dL (14.0-18.0)
[2020-07-01 15:34] VITALS: BP 135/63
== END 2020-07-01 16:50 | disposition home or self-care (01) | DRG 378 ==
LOC: ICU 22:39 → MED 06-29 20:27
PROVIDERS: ADMIT Internal Medicine; ATTEND Internal Medicine